=== PATIENT | female | born 1955 | race Caucasian/White ===

== ENCOUNTER → 2016-11-28 | Outpatient (CLI) | payer MEDICAID | LOC: FIMAGING 14:14 | PROVIDERS: ATTEND Neurological Surgery | DX: M43.17 Spondylolisthesis, lumbosacral region (principal); M43.16 Spondylolisthesis, lumbar region; M51.26 Other intervertebral disc displacement, lumbar region ==

== ENCOUNTER 2017-04-01 07:15 | Inpatient (IN) | payer MEDICAID ==
[~2017-04-01 07:15] MED LIST: BACITRACIN 50,000 UNITS/10 ML SYR IRR ONE; BUPIVACAINE/EPI 0.25% 30 ML SDV ONE; THROMBIN (BOVINE) 5,000 UNIT VIAL TP ONE; morphINE PF 5 MG/10 ML INJ IT ONE
[2017-04-01] MEDS ORDERED: ONDANSETRON 4 MG/2 ML VIAL ONE (08:16)
[2017-04-01] MEDS ORDERED: ROCURONIUM 50 MG/5 ML VIAL ONE (08:16)
[2017-04-01] MEDS ORDERED: DEXAMETHASONE 4 MG/ML VIAL ONE (08:16)
[2017-04-01] MEDS ORDERED: LIDOCAINE 2% 5 ML SDV ONE ×2 (08:16→09:11)
[2017-04-01] MEDS ORDERED: PROPOFOL 200 MG/20 ML VIAL ONE (08:17)
[2017-04-01] MEDS ORDERED: fentaNYL 100 MCG/2 ML INJ ONE ×4 (08:17→16:46)
[2017-04-01] MEDS ORDERED: THROMBIN (BOVINE) 5,000 UNIT VIAL TP ONE ×2 (08:47→08:57)
[2017-04-01] MEDS ORDERED: PROPOFOL/EMULSION 500 MG/50 ML BOTTLE IV ONE ×2 (08:58→11:21)
[2017-04-01] MEDS ORDERED: BUPIVACAINE/EPI 0.25% 30 ML SDV ONE (08:58)
[2017-04-01] MEDS ORDERED: MIDAZOLAM 2 MG/2 ML VIAL ONE (09:04)
[2017-04-01] MEDS ORDERED: MIDAZOLAM 2 MG/2 ML VIAL IVP ONE ×2 (09:08→09:11)
[2017-04-01] MEDS ORDERED: VANCOMYCIN HCL/NORMAL SALINE 250 ML IV ONE (09:08)
--- NOTE | 2017-04-01 09:10 | PDANEPAE ---
ANE History of Present Illness back pain ANE Past Medical History - Cardiovascular History Hx Hypertension: Yes Hx Arrhythmias: No Hx Chest Pain: No Hx Coronary Artery / Peripheral Vascular Disease: No Hx CHF / Valvular Disease: No Hx Palpitations: No - Pulmonary History Hx COPD: No Hx Asthma/Reactive Airway Disease: No Hx Recent Upper Respiratory Infection: No Hx Oxygen in Use at Home: No - Neurologic History Hx Cerebrovascular Accident: No Hx Seizures: No Hx Dementia: No - Endocrine History Hx Diabetes: Yes - Renal History Hx Renal Disorders: No - Liver History Hx Hepatic Disorders: No - Neurological & Psychiatric Hx Hx Neurological and Psychiatric Disorders: Yes - Cancer History Hx Cancer: No - Congenital Disorder History Hx Congenital Disorders: No - GI History Hx Gastrointestinal Disorders: No - Chronic Pain History Chronic Pain: Yes (BACK & NECK PAIN) ANE Review of Systems Review of systems is: negative - Exercise capacity METS (RN): 4 METS ANE Patient History - Allergies Allergies/Adverse Reactions: adhesive tape Allergy (Severe, Verified 03/05/17 12:58) Rash bone cement Allergy (Severe, Verified 03/05/17 12:56) Rash latex Allergy (Severe, Verified 03/05/17 12:57) Rash nickel Allergy (Severe, Verified 03/05/17 12:58) Rash lanolin Allergy (Verified 03/05/17 12:58) Rash Penicillins Allergy (Verified 02/26/17 09:57) SWELLING SURGICAL GLUE Allergy (Severe, Uncoded 03/05/17 12:56) Rash - Home Medications Home Medications: Levothyroxine [Synthroid 112 mcg (*)] 112 mcg PO DAILY06 02/26/17 [Last Taken Unknown] Lisinopril/Hctz 20/12.5MG [Zestoretic/Prinzide 20/12.5MG (*)] 1 ea PO DAILY [Last Taken Unknown] Multivitamins [Multivitamin (*)] 1 each PO DAILY 02/26/17 [Last Taken Unknown] Nortriptyline HCl [Pamelor 25 mg (*)] 25 mg PO HS 02/26/17 [Last Taken Unknown] Pregabalin [Lyrica 50mg (*)] 100 mg PO TID 02/26/17 [Last Taken Unknown] metFORMIN HCL [Glucophage 500 mg (*)] 500 mg PO DAILY 02/26/17 [Last Taken Unknown] - Smoking Hx Smoking Status: Former smoker - Family Anes Hx Family Hx Anesthesia Complications: NEG ANE Labs/Vital Signs - Vital Signs Height: 162.56 cm Weight: 85.275 kg ANE Physical Exam - Airway Mallampati Score: Class 2 Mouth exam: normal dental/mouth exam - Pulmonary Pulmonary: no respiratory distress - Cardiovascular Cardiovascular: regular rate and rhythym - ASA Status ASA Status: II ANE Anesthesia Plan Anesthesia Plan: general endotracheal anesthesia
[2017-04-01] MEDS ORDERED: TRANEXAMIC ACID 1,000 MG in NS 100 ML IV ONE ×2 (09:11→11:30)
[2017-04-01] MEDS ORDERED: LIDOCAINE 1% 2 ML INJ ONE (09:12)
[2017-04-01] MEDS ORDERED: LIDOCAINE 1% 2 ML INJ ID PRN (09:22)
[2017-04-01] MEDS ORDERED: LR 1,000 ML IV ONE (09:22)
--- NOTE | 2017-04-01 09:25 | PDHPUP ---
History & Physical Update H&P update statement: This history and physical update is based on an assessment of the patient which was completed after admission or registration (within 24 hours), but prior to the surgery/procedure. H&P update: H&P reviewed & patient examined, no change in patient's condition since H&P completed
[2017-04-01] MEDS ORDERED: ONDANSETRON 4 MG/2 ML VIAL IVP PRN (09:26)
[2017-04-01] MEDS ORDERED: BISACODYL 10 MG SUPP PR PRN (09:26)
[2017-04-01] MEDS ORDERED: ONDANSETRON DISINTEGRATING 4 MG TAB PO PRN (09:26)
[2017-04-01] MEDS ORDERED: POLYETHYLENE GLYCOL 3350 17 GM PKT PO PRN (09:26)
[2017-04-01] MEDS ORDERED: MAGNESIUM HYDROXIDE 30 ML UDCUP PO PRN (09:26)
[2017-04-01] MEDS ORDERED: LACTULOSE 20 GM/30 ML UDCUP PO PRN (09:26)
[2017-04-01] MEDS ORDERED: DIAZEPAM 10 MG/2 ML SYR IVP PRN (09:26)
--- NOTE | 2017-04-01 09:42 | POSTOPPROG ---
Post Op Note Date of Operation: 04/01/17 Surgeon: Jeffrey Cope Master Brewer: Virgen Poe Anesthesia: GET(General Endotracheal) Pre-op Diagnosis: Lumbar Stenosis Post-op Diagnosis: Same Procedure: L3-S1 TLIF, L3-S1 PSF Inf/Abcess present in the surg proc area at time of surgery?: No Depth: Organ Space Drains: Renato Bustamante SOAP Progress Note Assessment/Plan: Assessment: Plan: S: Patent in PACU. Stable with expected back pain. O: NAD, VSS CN II_XII grossly intact PERRL, EOMI No droop HARP X4 BLE 5/5= Sensation intact to lt touch Incision c/d/i-dressed RICK X 1- To full suction A: 62 yo female sp L3-S1 TLIF and L3-S1 PSF for lumbar stenosis and lumbar radiculopathy P: -Admit to med/surg -Advance diet as tolerated -Brace to be fit by Tip Bander- may be up prior to brace arriving -No lifting more than 5-10 pounds, no bending, or twisting -Postop x-rays pending in am -RICK X 1 to full suction -DVT: TEDs, SCDs, Lovenox ok POD #1 24 hours postop -Call with any questions or concerns Virgen Poe PA-C [facility] [phone] 04/01/17 09:39 Objective: Vital Signs Temp Pulse Resp BP Pulse Ox 37 C 70 16 116/80 95 04/01/17 09:34 04/01/17 09:34 04/01/17 09:34 04/01/17 09:34 04/01/17 09:34
[2017-04-01 09:55] LABS: INR 0.94 (0.83-1.16); PROTIME(PATIENT) 12.5 SEC (12.0-15.0)
[2017-04-01 09:56] LABS: APTT 30.8 SEC (23.0-38.0)
[2017-04-01] MEDS ORDERED: GLYCOPYRROLATE 0.2 MG/1 ML VIAL ONE (10:49)
[2017-04-01] MEDS ORDERED: PHENYLEPHRINE HCL 100 MCG/ML SYR ONE (11:11)
[2017-04-01] MEDS ORDERED: PROPOFOL/EMULSION 100 ML IV ONE (11:30)
[2017-04-01] MEDS ORDERED: morphINE PF 5 MG/10 ML INJ ONE (12:03)
[2017-04-01] MEDS ORDERED: HYDROmorphONE/DILAUDID 2 MG/ML INJ ONE (14:19)
[2017-04-01] MEDS ORDERED: ALBUTEROL 3 ML DEYVIAL IH PRN (14:49)
[2017-04-01] MEDS ORDERED: LR 500 ML IV PRN (14:49)
[2017-04-01] MEDS ORDERED: NALOXONE HCL 0.4 MG/ML INJ IVP PRN (14:49)
--- NOTE | 2017-04-01 15:09 | POSTANESTH ---
Post Anesthetic Evaluation Cardiovascular Status: Normal, Stable Respiratory Status: Normal, Stable Level of Consciousness/Mental Status: Can Participate in Eval Pain Control: Adequate, Prn Tx Ordered Nausea/Vomiting Control: Adequate, Prn Tx Ordered Complications Possibly Related to Anesthesia: None Noted
[2017-04-01] MEDS: fentaNYL 100 MCG/2 ML INJ IVP PRN ×4 (15:25→16:48)
[2017-04-01] MEDS: LISINOPRIL/HCTZ 20/12.5MG 1 EA TAB PO SCH (17:34)
[2017-04-01] MEDS: metFORMIN HCL 500 MG TAB PO SCH (17:35)
[2017-04-01] MEDS: PREGABALIN 50 MG CAP PO SCH ×3 (17:40→21:04)
[2017-04-01] MEDS: diphenhydrAMINE 25 MG CAP PO PRN (17:46)
[2017-04-01] MEDS: ACETAMINOPHEN 500 MG TAB PO SCH ×2 (17:46→21:05)
[2017-04-01] MEDS: oxyCODONE IR 5 MG TAB PO PRN (18:14)
[2017-04-01] MEDS ORDERED: NORTRIPTYLINE HCL 25 MG CAP PO SCH (21:00)
[2017-04-01] MEDS: morphINE SR 15 MG TAB PO SCH (21:05)
[2017-04-01] MEDS: SENNOSIDES/DOCUSATE SODIUM TAB PO SCH (21:05)
[2017-04-01] MEDS ORDERED: VANCOMYCIN 1.25 GM in D5W 250 ML IV ONE (22:00)
[2017-04-01] MEDS: NORTRIPTYLINE HCL 10 MG CAP PO SCH (23:15)
[2017-04-02] MEDS: DIAZEPAM 5 MG TAB PO PRN ×3 (00:40→13:46)
[2017-04-02] MEDS: oxyCODONE IR 5 MG TAB PO PRN ×4 (00:40→15:10)
--- NOTE | 2017-04-02 01:08 | GOP ---
[f rep st] OPERATIVE REPORT DATE OF OPERATION: 04/01/2017 SURGEON: Jeffrey Cope MD STEWARD/STEWARDESS TOURIST CLASS: SANTOS Clarke PREOPERATIVE DIAGNOSIS: Severe S1 radiculopathy with spinal listhesis at L4-5 and L5-S1, and severe spondylosis at L3-4. POSTOPERATIVE DIAGNOSIS: Severe S1 radiculopathy with spinal listhesis at L4-5 and L5-S1, and severe spondylosis at L3-4. PROCEDURE PERFORMED: 1. L3 to S1 transforaminal lumbar interbody fusion. 2. Placement of lumbar interbody grafts at L3-4, L4-5, L5-S1. 3. Placement of pedicle screw fixation, posterior instrumentation at L3, L4, L5 , S1. 4. Complete laminectomy at L5 with decompression of bilateral L4-5 foramen and L5-S1 foramen. 5. O-arm CT navigation for screw placement. 6. Winthrop of local autograft. 7. Use of allograft, bone morphogenic protein, and cadaver bone chips. 8. Intraoperative neurophysiological monitoring including somatosensory-evoked potentials and free run EMG. FINDINGS: Successful L3 to S1 fusion. SPECIMENS: There were no specimens. ESTIMATED BLOOD LOSS: 200 cc INDICATIONS: The patient is a 62-year-old woman who presented with severe bilateral S1 radiculopathy. She was found to have a grade 2 spondylolisthesis which is mobile at L5-S1, and a grade 1 spondylolisthesis at L4-5. She had severe foraminal stenosis at L5-S1 and lateral recess stenosis at that level as well. After much discussion, we discussed with her the option of surgical decompression and fusion, and she wished to proceed. DESCRIPTION OF PROCEDURE: Informed consent was obtained from the patient. The patient was brought to the operating room and a formal time-out was performed, identifying the patient by name, medical record number, and date of . Preoperative antibiotics were given. The endotracheal tube was placed. General endotracheal anesthesia was smoothly induced. The patient then turned to the prone position on a Renato table and all appropriate pressure points were padded and checked. A midline incision was marked in the low lumbar region and 30 cc of 0.25% Marcaine with epinephrine was infiltrated in the skin for hemostasis. The lumbar region was then prepped and draped in the normal sterile fashion. A single spinal needle was placed and a lateral x-ray using the O arm was obtained , localizing the correct level. At this point, the O arm was moved cephalad out of the way, and the skin incision made using a 10 blade. The subcutaneous tissues were dissected using monopolar electrocautery and the fascia was opened in the midline. This identified the spinous processes of L3, L4, L5, and S1 and the bottom portion of L2. At this point, the paraspinous muscles were taken down from the spinous processes and mobilized laterally, exposing the facet joints at L2-3, L3-4, L4-5 and L5-S1. Once this exposure was obtained, the stereotactic arc was placed on the S1 spinous process and a stereotactic CT scan was performed from L3 to S1. This was then used to confirm the entry point of the pedicle screws using known anatomic landmarks, and pedicle screws were then placed 1st on the left side at S1 with a 6.5 x 45 mm Medtronic Solaris screw, at L5 a 6.5 x 45 mm, at L4 a 6.5 x 45 mm, and at L3, 6.5 x 50 mm. Each entry point was drilled and then tapped using a 5.5 tap, and each pedicle was sounded prior to the placement of the screw. The same process was repeated on the right side, placing a 6.5 x 40 mm Medtronic Solaris screw at S1 , a 6.5 x 45 mm screw at L5, a 6.5 x 45 mm screw at L4, and a 6.5 x 50 mm screw at L3. At this point, all of the screw heads were stimulated, and none stimulated above threshold. A 2nd stereotactic CT scan was then performed confirming excellent placement of all pedicle screws within the pedicle in the bone. Next, the operative microscope was brought on the field and the remainder of the procedure was performed under high-power magnification. First, on the right side, we began with drilling the pars between L3 and L4, over the disc space. The L4 nerve root was identified and retracted medially, and the facet was completely removed down to the L4 pedicle. The disc space was then identified and was entered, some distraction was placed on the screw heads at L3 and L4, opening the disc space further. Using a combination of curettes and Kerrison punches and pituitary forceps, the disc was completely removed and the endplates were decorticated. A small bit of allograft cadaver bone was then placed into the disk space, and pushed toward the contralateral side. The disc space was sized for a 7 x 28 mm Medtronic Elevate cage which was packed with BMP , allograft and the autograft from the facet joint. This was then placed into the disk space under navigation with the O arm spin. An x-ray was performed, confirming good placement of the cage across the midline and anteriorly. We then moved down to L4-5, again placing distraction on the screw heads and removing the right-sided facet joint, and localizing the disc space. The disc space was again prepped as mentioned above, and was sized for an 8 x 23 mm Medtronic Elevate cage which was again packed with allograft, BMP and some autograft from the facet joint. It was then placed, again, into the disc space under navigation. We then moved to the L5-S1 space and at this level, the spinous process was completely removed and a full L5 laminectomy was performed decompressing both the L4-5 and the L5-S1 foramina on both sides. On the right side, we then retracted the S1 nerve root medially and prepared the disc space as mentioned above. This was sized for an 8 x 23 mm Medtronic Elevate cage, which was packed with allograft, BMP and autograft, and was again placed into the disc space under navigation. Once all the cages were placed, another lateral and AP radiograph was performed, confirming good cage placement. All of our neurophysiologic monitoring remained stable. The screw heads were then sized for bilateral Medtronic 4.5 mm titanium rods, which were placed and we were able to reduce the L4 and L5 vertebral bodies another few millimeters, up to the rods, reducing the spondylolisthesis further. The locking caps were then locked down and finally torqued. On the left side, the lamina and facet joints were decorticated, and this was covered with the remainder of the autograft and the remainder of the allograft BMP. A 1 x 10 cm Magna Fuse allograft was placed over the top of the BMP and the autograft. We did place a titanium Crosslink between the L4 and L5 screws, and all the hardware was tightened down finally. The wound was copiously irrigated using bacitracin irrigation. Again, the neurophysiologic monitoring was completely stable. Then, 0.2 mg of intrathecal Duramorph was injected prior to the final closure. A RICK drain was placed in the subfascial space and the deep lumbar fascia was closed using interrupted 0 Vicryl. The superficial fascia was closed using interrupted 0 Vicryl, and the deep dermis was closed using interrupted 2-0 Vicryl. The skin was closed using Steri-Strips. The patient was then awakened in the operating room, she was turned back into the supine position, where she was extubated and transferred to the PACU in stable condition. There were no operative complications. FLUIDS AND URINE OUTPUT: Per the anesthesia record. COMPLICATIONS: There were no operative complications. All sponge and needle counts were correct at the end of the case. DRAIN: subfascial RICK. /[id number]/MODL MTDD
[2017-04-02] MEDS: LEVOTHYROXINE 112 MCG TAB PO SCH (05:20)
[2017-04-02] MEDS: PREGABALIN 50 MG CAP PO SCH ×3 (05:21→21:58)
[2017-04-02] MEDS: ACETAMINOPHEN 500 MG TAB PO SCH ×3 (05:30→21:59)
--- NOTE | 2017-04-02 06:48 | NEUSURGPN ---
Date of Surgery: 04/01/17 Post Op Day: 1 Assessment/Plan: Assessment: 62 yo female s/p L3-S1 TLIF and L3-S1 PSF for lumbar stenosis and lumbar radiculopathy POD #1 Plan: -s/p L spine fusion surgery: pt with expected lower back pain -Advance diet as tolerated -Brace to be fit by Vice President Of Engineering- may be up prior to brace arriving-pending this am -No lifting more than 5-10 pounds, no bending, or twisting -Postop x-rays pending this am -RICK X 1 to full suction-continue with drain -DVT: TEDs, SCDs, Lovenox ok POD #1 24 hours postop -d/w Dr Cope -pt with some post op itching-?anesthesia or med related. No rash, no fever- will trial atarax -Call with any questions or concerns Subjective: Awake and alert. NAD. Eating/drinking and voiding. No f/c/n/v/d. No mckeon/neck/ chest/abd or gu complaints. Objective: NAD, VSS CN II_XII grossly intact PERRLA, EOMI No droop HARP X4 BLE 5/5= Sensation intact to lt touch Incision c/d/i-dressed RICK X 1- To full suction Neuro Check Frequency: per routine Urinary Catheter in Place: Yes Urinary Catheter Indication: Other (Use Comment) (to be removed this am) Catheter Insertion Date: 04/01/17 - Physician Discussed Patient with Dr.: Cope Neurosurgery Physical Exam - Vitals, I&O, Labs I and O 04/01/17 04/02/17 04/03/17 05:59 05:59 05:59 Intake Total 2410 Output Total 2830 Balance -420 Weight 85.27 kg Intake: Oral (ml) 810 IV Intake (ml) 1600 Output: Urine (ml) 2700 Catheter 2700 RICK Drain Output (ml) 130 Renato Bustamante 130 Vital Signs Temp Pulse Resp BP Pulse Ox 36.9 C 70 16 113/67 94 04/02/17 04:11 04/02/17 04:11 04/02/17 04:11 04/02/17 04:11 04/02/17 04:11 ICD10 Worksheet Patient Problems: Problems Problem Status Onset Arthrodesis status Acute Lumbar radicular pain Acute Lumbar stenosis Acute - ICD10 Problem Qualifiers (1) Lumbar stenosis (2) Lumbar radicular pain (3) Arthrodesis status
[2017-04-02] MEDS: metFORMIN HCL 500 MG TAB PO SCH (07:37)
[2017-04-02] MEDS: SENNOSIDES/DOCUSATE SODIUM TAB PO SCH ×2 (07:37→21:59)
[2017-04-02] MEDS: LISINOPRIL/HCTZ 20/12.5MG 1 EA TAB PO SCH (07:37)
[2017-04-02] MEDS: morphINE SR 15 MG TAB PO SCH ×2 (07:38→21:58)
[2017-04-02] MEDS: ENOXAPARIN 40 MG/0.4 ML SYR SC SCH (15:51)
[2017-04-02] MEDS: METHOCARBAMOL 750 MG TAB PO PRN (15:51)
[2017-04-02] MEDS: hydrOXYzine HCL 25 MG TAB PO PRN (18:22)
[2017-04-02] MEDS: oxyCODONE IR 15 MG TAB PO PRN (19:27)
[2017-04-02] MEDS ORDERED: NS W/ 20 KCl/L 1,000 ML IV SCH (21:00)
[2017-04-02] MEDS ORDERED: NS BOLUS 500 ML (Wide open) IV ONE (21:00)
[2017-04-02] MEDS: NORTRIPTYLINE HCL 10 MG CAP PO SCH (21:58)
[2017-04-03] MEDS: oxyCODONE IR 15 MG TAB PO PRN ×5 (00:11→23:31)
[2017-04-03] MEDS: DIAZEPAM 5 MG TAB PO PRN ×2 (00:12→20:05)
[2017-04-03] MEDS: METHOCARBAMOL 750 MG TAB PO PRN ×2 (04:11→13:20)
[2017-04-03] MEDS: ACETAMINOPHEN 500 MG TAB PO SCH ×2 (05:53→14:33)
[2017-04-03] MEDS: LEVOTHYROXINE 112 MCG TAB PO SCH (05:53)
--- NOTE | 2017-04-03 09:18 | NEUSURGPN ---
Date of Surgery: 04/01/17 Post Op Day: 2 Assessment/Plan: Assessment: 62 yo female s/p L3-S1 TLIF and L3-S1 PSF for lumbar stenosis and lumbar radiculopathy POD #1 Plan: -s/p L spine fusion surgery: pt with expected lower back pain-better today -Advance diet as tolerated -Brace fitted by Clean Out Driller Helper -No lifting more than 5-10 pounds, no bending, or twisting -Postop x-rays look good -RICK X 1 to full suction-ok to remove from both Dr Fox and my opinion-ordered for removal -DVT: TEDs, SCDs, Lovenox ok POD #1 24 hours postop -d/w Dr Cope-images reviewed -pt with some post op itching that is better -warning signs reviewed -Call with any questions or concerns Subjective: Awake and alert. NAD. Eating/drinking and voiding. Back pain better today. More ambulatory Objective: NAD, VSS CN II_XII grossly intact PERRLA, EOMI No droop HARP X4 BLE 5/5= Sensation intact to lt touch Incision c/d/i-dressed RICK X 1- To full suction-to be pulled today Neuro Check Frequency: per routine Urinary Catheter in Place: No Catheter Insertion Date: 04/01/17 - Physician Discussed Patient with Dr.: Cope Neurosurgery Physical Exam - Vitals, I&O, Labs I and O 04/02/17 04/03/17 04/04/17 05:59 05:59 05:59 Intake Total 2410 1200 Output Total 2830 1670 300 Balance -420 -470 -300 Weight 85.27 kg Intake: Oral (ml) 810 1200 IV Intake (ml) 1600 Output: Urine (ml) 2700 1500 300 Bedside Commode 1500 300 Catheter 2700 RICK Drain Output (ml) 130 170 Renato Bustamante 130 170 Other: Number of Voids Bedside Commode 1 Catheter 2 Vital Signs Temp Pulse Resp BP Pulse Ox 36.7 C 85 16 92/54 L 96 04/03/17 08:08 04/03/17 08:08 04/03/17 08:08 04/03/17 08:08 04/03/17 08:08 ICD10 Worksheet Patient Problems: Problems Problem Status Onset Arthrodesis status Acute Lumbar radicular pain Acute Lumbar stenosis Acute - ICD10 Problem Qualifiers (1) Lumbar stenosis (2) Lumbar radicular pain (3) Arthrodesis status
[2017-04-03] MEDS: morphINE SR 15 MG TAB PO SCH ×2 (09:49→20:05)
[2017-04-03] MEDS: PREGABALIN 50 MG CAP PO SCH ×3 (09:50→23:28)
[2017-04-03] MEDS: SENNOSIDES/DOCUSATE SODIUM TAB PO SCH (09:50)
[2017-04-03] MEDS: ENOXAPARIN 40 MG/0.4 ML SYR SC SCH (09:51)
[2017-04-03] MEDS: LISINOPRIL/HCTZ 20/12.5MG 1 EA TAB PO SCH (09:51)
[2017-04-03] MEDS: metFORMIN HCL 500 MG TAB PO SCH (09:51)
[2017-04-03] MEDS ORDERED: SIMETHICONE 80 MG TAB CHEW PO PRN (22:30)
[2017-04-03] MEDS ORDERED: METOCLOPRAMIDE 10 MG TAB PO PRN (23:30)
[2017-04-04] MEDS: SENNOSIDES/DOCUSATE SODIUM TAB PO SCH ×4 (00:49→20:03)
[2017-04-04] MEDS: ACETAMINOPHEN 500 MG TAB PO SCH ×5 (01:33→22:07)
[2017-04-04] MEDS: NORTRIPTYLINE HCL 10 MG CAP PO SCH ×2 (02:45→20:03)
[2017-04-04] MEDS: METHOCARBAMOL 750 MG TAB PO PRN ×2 (03:58→22:07)
[2017-04-04] MEDS: oxyCODONE IR 15 MG TAB PO PRN ×4 (03:58→22:06)
[2017-04-04] MEDS: LEVOTHYROXINE 112 MCG TAB PO SCH (05:29)
--- NOTE | 2017-04-04 08:23 | NEUSURGPN ---
Assessment/Plan: Assessment: 62 yo female s/p L3-S1 TLIF and L3-S1 PSF for lumbar stenosis and lumbar radiculopathy POD #3 Plan: -s/p L spine fusion surgery: pt with expected lower back pain-better today -Brace fitted by Return Checker -No lifting more than 5-10 pounds, no bending, or twisting -Postop x-rays with intact hardware -DVT: TEDs, SCDs, Lovenox -Constipation: had a loose bowel movement last night, Will contine to montior today -warning signs reviewed -Call with any questions or concerns -PT/OT: Patient would like to go home with [facility] if possible, will have her evaluated for this option. -Discussed with Dr. Cope Subjective: Pain improved, still with back stiffness with movement Objective: SAMIA, HARP X4 BLE 5/5= Sensation intact to lt touch Incision c/d/i Catheter Insertion Date: 04/01/17 - Physician Discussed Patient with Dr.: Cope Neurosurgery Physical Exam - Vitals, I&O, Labs I and O 04/03/17 04/04/17 04/05/17 05:59 05:59 05:59 Intake Total 1200 650 Output Total 1670 800 Balance -470 -150 Intake: Oral (ml) 1200 650 Output: Urine (ml) 1500 800 Bedside Commode 1500 450 Toilet 350 RICK Drain Output (ml) 170 Renato Bustamante 170 Other: Intake Quantity Yes Sufficient Number of Voids Bedside Commode 1 Catheter 2 Toilet 1 Vital Signs Temp Pulse Resp BP Pulse Ox 36.8 C 84 18 100/68 95 04/04/17 04:00 04/04/17 04:00 04/04/17 04:00 04/04/17 05:51 04/04/17 04:00 ICD10 Worksheet Patient Problems: Problems Problem Status Onset Arthrodesis status Acute Lumbar radicular pain Acute Lumbar stenosis Acute
[2017-04-04] MEDS: ENOXAPARIN 40 MG/0.4 ML SYR SC SCH (08:47)
[2017-04-04] MEDS: PREGABALIN 50 MG CAP PO SCH ×3 (08:47→22:07)
[2017-04-04] MEDS: LISINOPRIL/HCTZ 20/12.5MG 1 EA TAB PO SCH (08:47)
[2017-04-04] MEDS: metFORMIN HCL 500 MG TAB PO SCH (08:47)
[2017-04-04] MEDS: morphINE SR 15 MG TAB PO SCH ×2 (08:47→20:04)
[2017-04-04] MEDS: hydrOXYzine HCL 25 MG TAB PO PRN (15:02)
[2017-04-04 23:59] VITALS: RESP 16
[2017-04-05] MEDS: DIAZEPAM 5 MG TAB PO PRN ×2 (03:26→13:24)
[2017-04-05] MEDS: oxyCODONE IR 15 MG TAB PO PRN ×3 (03:26→15:07)
[2017-04-05] MEDS: METHOCARBAMOL 750 MG TAB PO PRN ×2 (05:32→18:02)
[2017-04-05] MEDS: ACETAMINOPHEN 500 MG TAB PO SCH ×2 (05:32→15:07)
[2017-04-05] MEDS: LEVOTHYROXINE 112 MCG TAB PO SCH (05:32)
[2017-04-05 07:45] VITALS: TEMP 98.1
[2017-04-05] MEDS: LISINOPRIL/HCTZ 20/12.5MG 1 EA TAB PO SCH ×2 (08:09→08:16)
[2017-04-05] MEDS: SENNOSIDES/DOCUSATE SODIUM TAB PO SCH (08:10)
[2017-04-05] MEDS: ENOXAPARIN 40 MG/0.4 ML SYR SC SCH (08:10)
[2017-04-05] MEDS: PREGABALIN 50 MG CAP PO SCH ×2 (08:12→15:06)
[2017-04-05] MEDS: metFORMIN HCL 500 MG TAB PO SCH (08:15)
--- NOTE | 2017-04-05 08:44 | NEUSURGPN ---
Date of Surgery: 04/01/17 Post Op Day: 4 Assessment/Plan: Assessment: 62 yo female s/p L3-S1 TLIF and L3-S1 PSF for lumbar stenosis and lumbar radiculopathy POD #4 dressing soaked today with pink drainage. Plan: frequent dressing checks, q4h, call if continue to be saturated. Change if saturated. -s/p L spine fusion surgery: pt with expected lower back pain -Brace when OOB -No lifting more than 5-10 pounds, no bending, or twisting -Postop x-rays with intact hardware -DVT: TEDs, SCDs, Lovenox -Call with any questions or concerns -PT/OT: -dispo: likely home w/ [facility] when cleared by therapy teams if wound not draining. -Discussed with Dr. Cope Subjective: c/o left sided back and hip pain, post operative pain. Objective: NAD, HARP X4 BLE 5/5= Sensation intact to lt touch Incision wet and saturated with pink fluid this am, still intact at this point. Urinary Catheter in Place: No Catheter Insertion Date: 04/01/17 - Physician Discussed Patient with : [facility] Physical Exam - Vitals, I&O, Labs I and O 04/04/17 04/05/17 04/06/17 05:59 05:59 05:59 Intake Total 650 500 Output Total 800 Balance -150 500 Intake: Oral (ml) 650 500 Output: Urine (ml) 800 Bedside Commode 450 Toilet 350 Other: Intake Quantity Yes Yes Sufficient Number of Voids Toilet 1 1 1 Number of Stools Toilet 1 Vital Signs Temp Pulse Resp BP Pulse Ox 36.7 C 80 16 110/63 92 04/05/17 07:44 04/05/17 07:44 04/05/17 07:44 04/05/17 08:16 04/05/17 07:44 ICD10 Worksheet Patient Problems: Problems Problem Status Onset Arthrodesis status Acute Lumbar radicular pain Acute Lumbar stenosis Acute
[2017-04-05] MEDS: morphINE SR 15 MG TAB PO SCH (08:50)
[2017-04-05] MEDS: diphenhydrAMINE 25 MG CAP PO PRN (10:20)
--- NOTE | 2017-04-05 15:28 | PDIAF ---
- Diagnosis Code Status: Full Code - Medication Management Discharge Medications: Medications to Continue on Transfer Levothyroxine [Synthroid 112 mcg (*)] 112 mcg PO DAILY06 02/26/17 [Last Taken ] Lisinopril/Hctz 20/12.5MG [Zestoretic/Prinzide 20/12.5MG (*)] 1 ea PO DAILY [Last Taken 03/31/17] Multivitamins [Multivitamin (*)] 1 each PO DAILY 02/26/17 [Last Taken 03/24/17] Nortriptyline HCl [Pamelor 25 mg (*)] 25 mg PO HS 02/26/17 [Last Taken 03/31/17] Pregabalin [Lyrica 50mg (*)] 100 mg PO TID 02/26/17 [Last Taken 03/31/17] metFORMIN HCL [Glucophage 500 mg (*)] 500 mg PO DAILY 02/26/17 [Last Taken 03/28] Acetaminophen [Tylenol ES 500 mg (*)] 1,000 mg PO Q8HRS #0 tab 04/05/17 [Last Taken Unknown] Diazepam [Valium 5 MG (*)] 5 mg PO Q6HRS PRN #0 tab 04/05/17 [Last Taken Unknown ] Sennosides/Docusate Sodium [Senokot-S] 1 - 2 tab PO BID #0 tab 04/05/17 [Last Taken Unknown] diphenhydrAMINE [Benadryl 25 MG (*)] 25 - 50 mg PO Q6HRS PRN #0 cap 04/05/17 [ Last Taken Unknown] hydrOXYzine HCL [hydrOXYzine HCL (RX)] 25 mg PO Q6HRS PRN #0 tab 04/05/17 [Last Taken Unknown] morphINE SR [Ms Contin/Oramorph 15 mg (*)] 15 mg PO BID #0 tab 04/05/17 [Last Taken Unknown] oxyCODONE IR [Oxycodone Ir (*)] 5 - 15 mg PO Q4HRS PRN #0 tab 04/05/17 [Last Taken Unknown] Discharge Medications: Refer to the Discharge Home Medication list for PRN reason. - Orders Services needed: Home Care, Registered Nurse, Physical Therapy, Occupational Therapy Home Care Face to Face: I certify that this patient was under my care and that I had the required [id number] encounter meeting the encounter requirements on the discharge day. My findings support the fact that the patient is homebound as defined in CMS Chapter 7 Medicare Benefits Manual 30.1.1, The condition of the patient is such that there exists a normal inability to leave home and consequently, leaving home would require a considerable and taxing effort. Diet Recommendation: no restrictions on diet - Follow Up Care Current Providers and Referrals: MARTIN ESCOBAR [Other] MARTIN ESCOBAR [Other]
[2017-04-05 17:21] VITALS: BP 97/57; PULSE 92; O2SAT 94
== END 2017-04-05 18:08 | disposition home health service (06) | DRG 460 ==
LOC: F3N 08:07
PROVIDERS: ADMIT Neurological Surgery; ATTEND Neurological Surgery
DX: M43.16 Spondylolisthesis, lumbar region (principal); M43.17 Spondylolisthesis, lumbosacral region; M54.16 Radiculopathy, lumbar region; I10 Essential (primary) hypertension
CPT/HCPCS: 97116-GP; 97161-GP; 97165-GO; 97530-GP; 97535-GO; C1713; C1762; J1100; J1170; J1200; J1650; J2250; J2274; J2370; J2405; J2704; J3010; J3370

== ENCOUNTER 2017-05-23 12:02 | Day surgery (SDC) | payer MEDICAID ==
[2017-05-23] MEDS ORDERED: fentaNYL 100 MCG/2 ML INJ ONE (14:40)
[2017-05-23] MEDS ORDERED: MIDAZOLAM 2 MG/2 ML VIAL ONE (14:41)
[2017-05-23] MEDS ORDERED: LIDOCAINE 1% 300 MG/30 ML SDV ONE (15:51)
[2017-05-23] MEDS ORDERED: TRIAMCINOLONE ACETONIDE 200 MG/5 ML MDV IM ONE (15:51)
[2017-05-23] MEDS ORDERED: IOPAMIDOL (ISOVUE-M 300) 15 ML VIAL ONE (15:52)
== END 2017-05-23 17:00 | disposition home or self-care (01) ==
LOC: FIMAGING 12:02
PROVIDERS: ATTEND Radiology Diagnostic Radiology
DX: M43.18 Spondylolisthesis, sacral and sacrococcygeal region (principal); T84.226A Displacement of internal fixation device of vertebrae, initial encounter; E03.9 Hypothyroidism, unspecified; Z98.1 Arthrodesis status
CPT/HCPCS: J2250; J3010; J3301; Q9967

== ENCOUNTER 2017-07-04 05:41 | Inpatient (IN) | payer MEDICAID ==
[2017-07-02 11:07] LABS: % IMMATURE GRANULYOCYTES 0.3 % (0.0-1.1); ABSOLUTE IMMATURE GRANULOCYTES 0.03 10^3/uL (0.00-0.10); ADD DIFF? NO; ADD MORPH? NO; ADD SCAN? NO; ATYPICAL LYMPHOCYTE FLAG 0 (0-99); FRAGMENT RBC FLAG 0 (0-99); HEMATOCRIT 46.8 % (38.0-47.0); HEMOGLOBIN 15.8 g/dL (12.6-16.3); LEFT SHIFT FLG 0 (0-99); LIPEMIA HEMOLYSIS FLAG 90 (0-99); MEAN CELL HEMOGLOBIN 32.2 pg (27.9-34.1); MEAN CELL HEMOGLOBIN CONCENTR. 33.8 g/dL (32.4-36.7); MEAN CELL VOLUME 95.3 fL (81.5-99.8); MEAN PLATELET VOLUME 9.4 fL (8.7-11.7); PLATELET CLUMPS FLAG 0 (0-99); PLATELET COUNT 295 10^3/uL (150-400); RED BLOOD CELL COUNT 4.91 10^6/uL (4.18-5.33); RED CELL DISTRIBUTION WIDTH 15.5 % (11.5-15.2)
[2017-07-04] MEDS ORDERED: LR 1,000 ML IV ONE (06:07)
[2017-07-04] MEDS ORDERED: LIDOCAINE 1% 2 ML INJ ID PRN (06:07)
[2017-07-04] MEDS ORDERED: CHLORHEXIDINE GLUC HIBICLENS 118 ML BTL TP ONE (06:52)
[2017-07-04] MEDS ORDERED: THROMBIN (BOVINE) 5,000 UNIT VIAL TP ONE (06:52)
[2017-07-04] MEDS ORDERED: BACITRACIN 50,000 UNITS/10 ML SYR IRR ONE (06:53)
[2017-07-04] MEDS ORDERED: BUPIVACAINE 0.5% 30 ML SDV ONE (06:53)
[2017-07-04] MEDS ORDERED: BUPIVACAINE 0.25% 30 ML SDV ONE (06:53)
--- NOTE | 2017-07-04 07:11 | PDANEPAE ---
ANE Past Medical History - Cardiovascular History Hx Hypertension: No Hx Arrhythmias: No Hx Chest Pain: No Hx Coronary Artery / Peripheral Vascular Disease: No Hx CHF / Valvular Disease: No Hx Palpitations: No - Pulmonary History Hx COPD: No Hx Asthma/Reactive Airway Disease: No Hx Recent Upper Respiratory Infection: No Hx Oxygen in Use at Home: No Hx Sleep Apnea: No Sleep Apnea Screening Result - Last Documented: Negative - Neurologic History Hx Cerebrovascular Accident: No Hx Seizures: No Hx Dementia: No - Endocrine History Hx Diabetes: Yes Endocrine History Comment: HYPOTHYROID - Renal History Hx Renal Disorders: No - Liver History Hx Hepatic Disorders: No - Neurological & Psychiatric Hx Hx Neurological and Psychiatric Disorders: Yes Neurological / Psychiatric History Comment: ANXIETY- on nortriptyline. Excrutiating Low back pain radiates down L tailbone/buttock L knee, L calf. Slipped hardware 03-29 fusion - Cancer History Hx Cancer: No Cancer History Comment: CERVICAL DYSPLASIA - Congenital Disorder History Hx Congenital Disorders: No - GI History Hx Gastrointestinal Disorders: No Gastrointestinal History Comment: constipation due to narcotics - Other Health History Other Health History: NEG - Chronic Pain History Chronic Pain: Yes (back, L leg) - Surgical History Prior Surgeries: L3/S1 fusion 04-01-17. TKA L. CERVICAL FUSION 2015 ANE Review of Systems Review of Systems: - Exercise capacity METS (RN): 4 METS ANE Patient History - Allergies Allergies/Adverse Reactions: adhesive tape Allergy (Severe, Verified 06/30/17 11:53) Rash bone cement Allergy (Severe, Verified 06/30/17 11:53) Rash latex Allergy (Severe, Verified 06/30/17 11:53) Rash nickel Allergy (Severe, Verified 06/30/17 11:53) Rash lanolin Allergy (Verified 06/30/17 11:53) Rash Penicillins Allergy (Verified 06/30/17 11:53) SWELLING SURGICAL GLUE Allergy (Severe, Uncoded 03/05/17 12:56) Rash - Home Medications Home Medications: Multivitamins [Multivitamin (*)] 1 each PO DAILY 02/26/17 [Last Taken 06/20/17] Levothyroxine [Synthroid 88 mcg (*)] 88 mcg PO DAILY06 06/27/17 [Last Taken ] Nortriptyline HCl [Pamelor 10 mg (*)] 10 mg PO HS 06/27/17 [Last Taken 07/03/17] Sennosides/Docusate Sodium [Senokot-S] 2 tab PO BID 06/27/17 [Last Taken ] oxyCODONE IR [Oxycodone Ir (*)] 15 mg PO Q6HRS PRN 06/27/17 [Last Taken 07/04/17 ] LYRICA 06/30/17 [Last Taken 07/03/17 21:00] - Smoking Hx Smoking Status: Current some day smoker - Family Anes Hx Family Hx Anesthesia Complications: NEG ANE Labs/Vital Signs - Labs Result Diagrams: 07/02/17 10:54 - Vital Signs Height: 162.56 cm Weight: 81.647 kg ANE Physical Exam - Airway Mallampati Score: Class 2 - ASA Status ASA Status: II ANE Anesthesia Plan Anesthesia Plan: general endotracheal anesthesia Lines/Monitors: additional IV
[2017-07-04] MEDS ORDERED: MIDAZOLAM 2 MG/2 ML VIAL ONE (07:16)
[2017-07-04] MEDS ORDERED: fentaNYL 100 MCG/2 ML INJ ONE ×5 (07:16→14:52)
[2017-07-04] MEDS ORDERED: PROPOFOL 200 MG/20 ML VIAL ONE (07:17)
[2017-07-04] MEDS ORDERED: PROPOFOL/EMULSION 500 MG/50 ML BOTTLE IV ONE ×4 (07:17→13:31)
[2017-07-04] MEDS ORDERED: VANCOMYCIN PHARMACY TO DOSE MISC ONE (07:22)
[2017-07-04] MEDS ORDERED: oxyCODONE IR 15 MG TAB PO PRN (07:23)
[2017-07-04] MEDS ORDERED: VANCOMYCIN 1.25 GM in D5W 250 ML IV ONE (07:30)
[2017-07-04] MEDS ORDERED: CITRATE DEXTROSE SOLN 500 ML BAG ONE (07:49)
[2017-07-04] MEDS ORDERED: fentaNYL 100 MCG/2 ML INJ IT ONE (08:30)
[2017-07-04] MEDS ORDERED: PHENYLEPHRINE HCL 100 MCG/ML SYR ONE (08:38)
[2017-07-04] MEDS ORDERED: ROCURONIUM 50 MG/5 ML VIAL ONE ×2 (08:38)
[2017-07-04] MEDS ORDERED: ONDANSETRON 4 MG/2 ML VIAL ONE ×2 (08:38→14:45)
[2017-07-04] MEDS ORDERED: METOCLOPRAMIDE 10 MG/2 ML VIAL ONE (08:38)
[2017-07-04] MEDS ORDERED: METOPROLOL TARTRATE 5 MG/5 ML INJ ONE (09:27)
[2017-07-04] MEDS ORDERED: morphINE PF 1 MG/2 ML AMP IT ONE (09:30)
[2017-07-04] MEDS ORDERED: BACITRACIN ZINC 14.2 GM OINTTUBE TP ONE (10:40)
[2017-07-04] MEDS ORDERED: SURGIFLO MATRIX KIT WITH THROMBIN TP ONE (12:44)
--- NOTE | 2017-07-04 14:37 | GOP ---
[f rep st] OPERATIVE REPORT DATE OF OPERATION: 07/04/2017 SURGEON: Guillermo Aguirre MD CO-SURGEON: Dr Juan Francisco Barney PARTS SALES MANAGER: Dr. Ezequiel Cope. ANESTHESIA: General. PREOPERATIVE DIAGNOSIS: 1. Hardware malfunction with previous history of fusion L3 through S1. 2. Sacral fracture. 3. Treatment refractory to nonoperative intervention. POSTOPERATIVE DIAGNOSIS: 1. Anterior arthrodesis with approach to L5-S1. 2. Partial corpectomy L5, and partial corpectomy S1. 3. Removal of interbody cage. 4. L5-S1 re-do discectomy and interbody fusion using a 16 x 12 degree perimeter PEEK cage with morselized allograft. 5. Anterior lumbar fusion L5-S1 with a large Medtronic Pivox plate with a 30 mm screw in the L5, and a 30 mm screw in the S1. 6. Use of intraoperative fluoroscopy, less than 1 hour fluoroscopy time. 7. Use of neuromonitoring. PROCEDURE PERFORMED: 1. Anterior arthrodesis with approach to L5-S1. 2. Partial corpectomy L5, and partial corpectomy S1. 3. Removal of interbody cage. 4. L5-S1 re-do discectomy and interbody fusion using a 16 x 12 degree perimeter PEEK cage with morselized allograft. 5. Anterior lumbar fusion L5-S1 with a large Medtronic Pivox plate with a 30 mm screw in the L5, and a 30 mm screw in the S1. 6. Use of intraoperative fluoroscopy, less than 1 hour fluoroscopy time. 7. Use of neuromonitoring. FINDINGS: per imaging ESTIMATED BLOOD LOSS: 100 mL. INDICATIONS: The patient is a 62-year-old woman, who underwent a previous L3- S1 fusion by Dr. Cope several months ago. The patient had progressive pain, and was noted to have a sacral fracture as well as hardware failure of the L5- S1 screw unilaterally. After discussion of risks, benefits, and treatment alternatives, after failing nonoperative interventions, we decided to proceed forth with surgery as described above. This is stage 1 of a planned 2-stage surgical procedure. Stage 2 will be completed immediately thereafter and as a posterior surgery, and will be dictated in a separate operative report. DESCRIPTION OF PROCEDURE: Patient was brought to operating theater and underwent general endotracheal anesthesia without complications. She had Venodynes AYLIN hose, and the appropriate lines placed by Anesthesia. She was maintained supine on the operating room table, and using lateral fluoroscopy, we marked out an incision on the ventral, anterior, and inferior aspect of the abdomen. This area was prepped and draped in usual sterile surgical fashion. A time-out was completed per protocol, and the patient received antibiotics within [address] Barney and his team will then dictate in a separate operative report the anterior abdominal approach to the L5-S1 level. Once this was completed, we were called into the room. We confirmed our level again using lateral fluoroscopy. At this point, we incised the ventral aspect of the L5 and S1 disk space with an 11-blade. We completed a ventral L5-S1 discectomy. We were able to identify the previous hardware in the L5-S1 disk space. However, because it was imbedded in the L5 vertebral body as well as S1, I had to complete a partial corpectomy of L5 and S1 using the bur tip on the drill bit and Kerrison punches. We were then able to pull out the entire interbody cage with the pituitaries. I then re-prepped the endplates and partial corpectomy site of L5 and S1. We measured interbody space, and placed a 16 x 12 degree perimeter PEEK cage filled with morcellized allograft into the L5-S1 space. We then secured a large Medtronic Pivox plate with a 30 mm screw into L5 and a 30 mm screw into S1. AP and lateral x-rays demonstrated excellent placement of the hardware. We also achieved small amount of distraction of the L5-S1 foramina bilaterally by placement of this large interbody cage. This was completion of the anterior interbody fusion. Dr. Barney and his team will then dictate in a separate operative report the anterior abdominal closure. COMPLICATIONS: None. /[id number]/MODL MTDD
[2017-07-04] MEDS ORDERED: ALBUTEROL 3 ML DEYVIAL IH PRN (14:41)
[2017-07-04] MEDS ORDERED: fentaNYL 100 MCG/2 ML INJ IVP PRN (14:41)
[2017-07-04] MEDS ORDERED: LR 500 ML IV PRN (14:41)
[2017-07-04] MEDS ORDERED: NALOXONE HCL 0.4 MG/ML INJ IVP PRN (14:41)
[2017-07-04] MEDS ORDERED: MEPERIDINE 25 MG/ML SYR IVP PRN (14:41)
[2017-07-04] MEDS ORDERED: PROMETHAZINE HCL 25 MG/ML INJ IVP PRN ×2 (14:41→14:50)
[2017-07-04] MEDS ORDERED: ONDANSETRON 4 MG/2 ML VIAL IVP PRN ×2 (14:41→14:50)
[2017-07-04] MEDS ORDERED: HYDROCODONE/APAP 5/325 TAB PO PRN (14:41)
[2017-07-04] MEDS ORDERED: ONDANSETRON DISINTEGRATING 4 MG TAB PO PRN (14:50)
[2017-07-04] MEDS ORDERED: LACTULOSE 20 GM/30 ML UDCUP PO PRN (14:50)
[2017-07-04] MEDS ORDERED: DIAZEPAM 10 MG/2 ML SYR IVP PRN (14:50)
[2017-07-04] MEDS ORDERED: diphenhydrAMINE 25 MG CAP PO PRN (14:50)
[2017-07-04] MEDS ORDERED: BISACODYL 10 MG SUPP PR PRN (14:50)
--- NOTE | 2017-07-04 14:50 | NEUSURGPN ---
Assessment/Plan: S: Patient in PACU. Stable and in expected back pain. O: NAD, VSS CN II-XII grossly intact PERRL, EOMI HARP X 4 BLE 5/5= Sensation intact to lt touch Incision c/d/i- RICK X 2 A: 62 yo female sp L5/S1 ALIF,hardware revision and L3-S2 posterior fusion P: -Admit to Med/Surg -NPO until 07/05 am, then may advance to clear liquid tomorrow -Postop x-rays tomorrow if able -Advance diet as tolerated -RICK X 2 -Wear brace when up and out of bed -Intrathecal narcotics given intraop -Optimize pain management- Intrathecal narcs given 07/04 ~1400 -PT/OT -Case management consult placed for hopeful discharge to inpatient rehab - [place] up discharge -DVT: TEDs, SCDs, Lovenox 24hours postop -Patient seen by Dr. Cope in PACU - Physician Discussed Patient with Dr.: Cope Patient Seen by : Anatoliy Neurosurgery Physical Exam - Vitals, I&O, Labs I and O 07/03/17 07/04/17 07/05/17 05:59 05:59 05:59 Weight 81.647 kg Laboratory Results 07/02/17 10:54 ICD10 Worksheet Patient Problems: Problems Problem Status Onset Arthrodesis status Acute Lumbar radicular pain Acute Lumbar stenosis Acute
[2017-07-04] MEDS ORDERED: NS 1,000 ML IV SCH (15:00)
[2017-07-04] MEDS ORDERED: HYDROmorphONE/DILAUDID 1 MG/ML INJ IVP PRN ×2 (15:01→15:17)
[2017-07-04] MEDS ORDERED: HYDROmorphONE/DILAUDID 1 MG/ML INJ ONE (15:18)
[2017-07-04] MEDS ORDERED: MEPERIDINE 25 MG/ML SYR ONE (15:28)
--- NOTE | 2017-07-04 15:32 | GOP ---
[f rep st] OPERATIVE REPORT DATE OF OPERATION: 07/04/2017 SURGEON: Jeffrey Cope MD SERVICE DESK MANAGER: Virgen So PA-C ANESTHESIA: General endotracheal. PREOPERATIVE DIAGNOSIS: Status post L3 to S1 fusion with hardware failure. POSTOPERATIVE DIAGNOSIS: Status post L3 to S1 fusion with hardware failure. PROCEDURE PERFORMED: 1. Exploration of lumbar fusion. 2. Hardware removal at S1 and the posterior lateral rods. 3. Placement of pedicle screws at S1. 4. Sacral pelvic fixation S2 to the ilium. 5. Posterolateral fusion, L3 to S2. 6. Use of O-arm navigation for screw placement. 7. [place] of local autograft. 8. Use of allograft, BMP, and Progenix Plus demineralized bone matrix. 9. Intraoperative neurophysiological monitoring, including somatosensory- evoked potentials and motor-evoked potentials. FINDINGS: A successful L3 to the ilium fusion. SPECIMENS: None. ESTIMATED BLOOD LOSS: 200 cc. DESCRIPTION OF PROCEDURE: After informed consent was obtained, the patient was brought to the operating room, and after the first stage of the procedure, where the ALIF was performed, she had already been anesthetized and was turned into the prone position on the Renato table. All appropriate pressure points were padded and checked. The lumbar region was then prepped and draped in a normal sterile fashion. Previous incision was marked and was extended slightly caudal. At this point, the skin incision was made using a 10 blade, and the subcutaneous tissues were dissected using monopolar electrocautery. Then the fascia was opened in the midline. Self-retaining retractors were placed. The midline CrossLink was identified, and this was dissected out to the rods. The screw heads at L3 to S1 were identified bilaterally, and the rods were as well. The CrossLink was then removed, and the locking caps on the screw heads were removed, and the fusion rods were removed. The screw on the right at S1 was quite loose and was able to be pulled from the pedicle. The left-sided screw was still intact, and this was backed out carefully. At this point, the O-arm was brought into the field and a stereotactic spin was obtained, including the L4 to S2 vertebral bodies. This was then used to localize the entry points for screws at S2 which would cross the SI joint into the ilium. On the right side, the bone was decorticated and a 5.5-6.5 mm tap was used to tap through the SI joint, using guidance from the O -arm spin. This was then sounded, and an 8.5 x 80 mm Medtronic Solaris screw was placed on the right side. Add at this point, on the left side, the screw hole was sounded to be sure that there was no breach, and an 8.5 x 45 mm Medtronic Solaris screw was placed in the previous trajectory. Next, on the opposite side at S2, again the entry point was identified using the stereotactic spin, and the tap was again used to tap across the SI joint. The hole was sounded, and another 8.5 x 80 mm Medtronic Solaris screw was placed through the SI joint into the ilium. At S1 on the right side, the screw hole and significantly loosened; therefore, a 9.5 x 45 mm Medtronic Solaris screw was placed at that level. A 2nd stereotactic spin was obtained and revealed good placement of all the screws with no breach. Each of the screws was then tested using neurophysiologic monitoring, and each stimulated below threshold. At this point, the wound was copiously irrigated using bacitracin irrigation. We then identified the area of the right-sided foramen between L5 and S1, and the scar tissue was carefully retracted medially. A piece of the remaining inferior facet at L5 had significantly shifted when she pulled out her screws and was significantly compressing the exiting L5 nerve root. Kerrison punches were used to remove this piece the inferior facet, completely decompressing the nerve, which we could see all the way out into the foramen with no further compression. We then followed the dura and decompressed medially and all the way across to the left side nerve root, which was somewhat compressed, as well, from part of the inferior facet of L5. This nerve root was also completely decompressed all the way onto the foramen. Both S1 nerve roots were visualized , and no compression was seen on these nerves. At this point, again, the wound was copiously irrigated using bacitracin irrigation. The 4.75 mm Medtronic titanium rods of 110 mm were then fit into the screw heads, and locking caps were placed. Each of the locking caps was tightened down to its final torque. A CrossLink was placed between the L4 and L5 screws, and this was tightened in place, as well. Then 0.2 mg of intrathecal Duramorph was injected into the intrathecal space for pain control. At this point, the bone over the left side of the lamina of L3 and L4 was decorticated, as well as the lamina of S1 and S2. Some decortication was done over the pedicle of L5, but the lamina had already been removed. We then performed a posterolateral fusion in this area using some allograft bone chips and the locally harvested autograft from the inferior facets of L5, mixed with BMP and Progenix Plus demineralized bone matrix. This was placed out over the decorticated bone to form a fusion from L3 to S2. At this point, the wound was again copiously irrigated using bacitracin irrigation. Two RICK drains were placed in the subfascial space. All bleeding was controlled with bipolar electrocautery. The fascia was then closed in the midline using interrupted 0 Vicryl's. The deep dermis was closed using interrupted 2-0 Vicryl's, and the skin was closed using Dermabond. Final x- rays were obtained showing good position of all hardware. The patient was then turned back into the supine position where she was extubated and transferred to the PACU in stable condition. There were no operative complications. I was scrubbed and present for the entire procedure. BRIEF CLINICAL HISTORY: Faith Womack is a 62-year-old woman who had presented with back pain and bilateral L5 radiculopathy from a grade 2 L5-S1 spondylolisthesis. She was taken for an L3 to S2 TLIF, after which she did well for several days. She then had a fall and had a small fracture of the sacral ala where the cage appeared to be loose. She has had extreme back pain and recurrent radiculopathy since that time, although the imaging looked relatively normal until recently, where it was seen that the rods had pulled out of the S1 screw heads on the left side, and on the right, the screw had loosened; and she had gone to a grade 2-3 slip at L5-S1. She was scheduled for surgery electively today, and we first performed an ALIF at L5-S1 with removal of the cage, which is dictated under separate operative note. Now, we have turned to the revision of the posterior instrumentation. FLUIDS AND URINE OUTPUT: Per the anesthesia record. COMPLICATIONS: No operative complications. DRAINS: Subfascial RICK. /[id number]/MODL MTDD
[2017-07-04] MEDS: HYDROmorphONE/DILAUDID 1 MG/ML INJ IVP PRN ×3 (15:40→16:26)
[2017-07-04] MEDS: DIAZEPAM 5 MG TAB PO PRN ×2 (16:42→22:50)
[2017-07-04] MEDS: oxyCODONE IR 5 MG TAB PO PRN ×2 (17:28→22:50)
[2017-07-04] MEDS: morphINE SR 15 MG TAB PO SCH ×2 (18:13→20:17)
[2017-07-04] MEDS ORDERED: VANCOMYCIN 1.25 GM in D5W 250 ML IV SCH (20:00)
[2017-07-04] MEDS: SENNOSIDES/DOCUSATE SODIUM TAB PO SCH (20:17)
[2017-07-04] MEDS: FAMOTIDINE 20 MG TAB PO SCH (20:17)
[2017-07-04] MEDS: NORTRIPTYLINE HCL 10 MG CAP PO SCH (22:50)
[2017-07-04] MEDS: ACETAMINOPHEN 500 MG TAB PO SCH (22:50)
[2017-07-05] MEDS: oxyCODONE IR 5 MG TAB PO PRN ×6 (04:31→21:21)
[2017-07-05] MEDS: METHOCARBAMOL 750 MG TAB PO PRN ×3 (04:31→15:10)
[2017-07-05] MEDS: LEVOTHYROXINE 88 MCG TAB PO SCH (04:31)
[2017-07-05] MEDS: ACETAMINOPHEN 500 MG TAB PO SCH ×3 (04:32→21:17)
[2017-07-05 05:33] LABS: HEMATOCRIT 33.7 % (38.0-47.0); HEMOGLOBIN 11.4 g/dL (12.6-16.3)
[2017-07-05 05:55] LABS: ANION GAP 5 mEq/L (8-16); CALCIUM 8.1 mg/dL (8.5-10.4); CARBON DIOXIDE 22 mEq/l (22-31); CHLORIDE 106 mEq/L (97-110); CREATININE 0.6 mg/dL (0.6-1.0); GLOMERULAR FILTRATION RATE > 60; GLUCOSE 106 mg/dL (70-100); POTASSIUM 3.9 mEq/L (3.5-5.2); SODIUM 133 mEq/L (134-144)
[2017-07-05] MEDS ORDERED: TIOTROPIUM INHALER 18 MCG/DOSE 5 DOSE/MDI IH PRN (07:02)
--- NOTE | 2017-07-05 07:05 | NEUSURGPN ---
Date of Surgery: 07/04/17 Post Op Day: 1 Assessment/Plan: -may advance to clear liquid diet -Postop x-rays today if able -Advance diet as tolerated -RICK X 2 -Wear brace when up and out of bed -Intrathecal narcotics given intraop -Optimize pain management- Intrathecal narcs given 07/04 ~1400 -PT/OT -Case management consult placed for hopeful discharge to inpatient rehab - [place] up discharge -DVT: TEDs, SCDs, Lovenox 24hours postop -Patient seen by Dr. Cope in PACU Subjective: Patient with expected abdominal and back pain Objective: CN II-XII grossly intact PERRL, EOMI HARP X 4 BLE 5/5= Sensation intact to lt touch Incision c/d/i- RICK x2 patent Neuro Check Frequency: per routine Urinary Catheter in Place: No Catheter Insertion Date: 07/04/17 - Physician Discussed Patient with : Anatoliy Neurosurgery Physical Exam - Vitals, I&O, Labs I and O 07/04/17 07/05/17 07/06/17 05:59 05:59 05:59 Intake Total 4325 Output Total 1540 Balance 2785 Weight 81.647 kg Intake: IV Intake (ml) 2800 IV Infused (ml) 1525 Ns 1,000 ml @ 100 mls/hr 1250 IV CONT WALKER Rx#: [id number] Vancomycin 1.25 gm In D5w 275 250 ml @ 166.667 mls/hr IV ONCALL ONE Rx#: [id number] Output: Urine (ml) 850 Catheter 850 Estimated Blood Loss (ml) 500 RICK Drain Output (ml) 190 #1 Left Posterior Back 50 Renato Bustamante #2 Right Posterior Back 140 Renato Bustamante Other: Intake Quantity No Sufficient Vital Signs Temp Pulse Resp BP Pulse Ox 36.8 C 91 16 109/69 95 07/05/17 04:36 07/05/17 04:36 07/05/17 04:36 07/05/17 04:36 07/05/17 04:36 Laboratory Results 07/05/17 05:25 07/05/17 05:25 ICD10 Worksheet Patient Problems: Problems Problem Status Onset Arthrodesis status Acute Lumbar radicular pain Acute Lumbar stenosis Acute
[2017-07-05] MEDS: SENNOSIDES/DOCUSATE SODIUM TAB PO SCH ×2 (08:05→20:22)
[2017-07-05] MEDS: POLYETHYLENE GLYCOL 3350 17 GM PKT PO PRN (08:05)
[2017-07-05] MEDS: PREGABALIN 100 MG CAP PO SCH ×3 (08:06→21:18)
[2017-07-05] MEDS: FAMOTIDINE 20 MG TAB PO SCH ×2 (08:06→20:22)
[2017-07-05] MEDS: morphINE SR 15 MG TAB PO SCH ×3 (08:06→20:22)
[2017-07-05] MEDS: DIAZEPAM 5 MG TAB PO PRN ×2 (12:23→17:17)
--- NOTE | 2017-07-05 15:33 | SOAPPROG ---
SOAP Progress Note Assessment/Plan: Assessment: POSTOP DAY 1. STATUS POST L5-S1 ANTERIOR SPINE FUSION/REASONABLY COMFORTABLE/ WOUND OKAY/ABDOMEN SOFT WITH BOWEL SOUNDS/ Plan: ADVANCE DIET 07/05/17 15:33 Objective: Vital Signs Temp Pulse Resp BP Pulse Ox 36.8 C 99 18 108/65 94 07/05/17 12:00 07/05/17 12:00 07/05/17 12:00 07/05/17 12:00 07/05/17 12:00 Laboratory Results 07/05/17 05:25 07/05/17 05:25 07/04/17 07/05/17 07/06/17 05:59 05:59 05:59 Intake Total 4325 Output Total 1540 130 Balance 2785 -130 ICD10 Worksheet Patient Problems: Problems Problem Status Onset Arthrodesis status Acute Lumbar radicular pain Acute Lumbar stenosis Acute
[2017-07-05] MEDS: ENOXAPARIN 40 MG/0.4 ML SYR SC SCH (17:11)
[2017-07-05] MEDS: NORTRIPTYLINE HCL 10 MG CAP PO SCH (20:22)
[2017-07-06] MEDS: LEVOTHYROXINE 88 MCG TAB PO SCH (05:19)
[2017-07-06] MEDS: oxyCODONE IR 5 MG TAB PO PRN ×3 (05:19→13:52)
[2017-07-06] MEDS: ACETAMINOPHEN 500 MG TAB PO SCH ×3 (05:19→20:58)
[2017-07-06] MEDS: POLYETHYLENE GLYCOL 3350 17 GM PKT PO PRN (08:58)
[2017-07-06] MEDS: ENOXAPARIN 40 MG/0.4 ML SYR SC SCH (08:58)
[2017-07-06] MEDS: SENNOSIDES/DOCUSATE SODIUM TAB PO SCH ×2 (08:58→20:57)
[2017-07-06] MEDS: morphINE SR 15 MG TAB PO SCH ×2 (08:59→20:58)
[2017-07-06] MEDS: PREGABALIN 100 MG CAP PO SCH ×3 (08:59→20:58)
[2017-07-06] MEDS: METHOCARBAMOL 750 MG TAB PO PRN ×2 (09:00→13:54)
[2017-07-06] MEDS: FAMOTIDINE 20 MG TAB PO SCH ×2 (09:00→20:58)
--- NOTE | 2017-07-06 11:50 | NEUSURGPN ---
Date of Surgery: 07/04/17 Post Op Day: 2 Assessment/Plan: 62 yr L5-S1 ALIF with L3-S2 posterior fusion POD#2 -Postop x-rays stable -Advance diet as tolerated per general surgery, may consider full liquid if -RICK X 2 -Wear brace when up and out of bed -PT/OT -Pain well controlled with current medication regimen -Case management consult placed for hopeful discharge to inpatient rehab - [place] up discharge -DVT: TEDs, SCDs, Lovenox 24hours postop -Patient seen by Dr. Cope as well Subjective: Leg pain gone, happy with pain control Objective: AxO x3 PERRLA EOMI 5/5 BUE 5/5 BLE Incision/dressing CDI RICK x2 patent Neuro Check Frequency: per routine Urinary Catheter in Place: No Catheter Insertion Date: 07/04/17 - Physician Discussed Patient with Dr.: Cope Patient Seen by : Anatoliy Neurosurgery Physical Exam - Vitals, I&O, Labs I and O 07/05/17 07/06/17 07/07/17 05:59 05:59 05:59 Intake Total 4325 350 Output Total 1540 310 210 Balance 2785 40 -210 Weight 81.647 kg Intake: Oral (ml) 350 IV Intake (ml) 2800 IV Infused (ml) 1525 Ns 1,000 ml @ 100 mls/hr 1250 IV CONT WALKER Rx#: [id number] Vancomycin 1.25 gm In D5w 275 250 ml @ 166.667 mls/hr IV ONCALL ONE Rx#: [id number] Output: Urine (ml) 850 Catheter 850 Estimated Blood Loss (ml) 500 RICK Drain Output (ml) 190 310 210 #1 Left Posterior Back 50 130 170 Renato Bustamante #2 Right Posterior Back 140 180 40 Renato Bustamante Other: Intake Quantity No Sufficient Number of Voids Toilet 2 1 Vital Signs Temp Pulse Resp BP Pulse Ox 36.8 C 104 H 16 113/71 93 07/06/17 07:37 07/06/17 11:32 07/06/17 11:32 07/06/17 11:32 07/06/17 11:32 Laboratory Results 07/05/17 05:25 07/05/17 05:25 ICD10 Worksheet Patient Problems: Problems Problem Status Onset Arthrodesis status Acute Lumbar radicular pain Acute Lumbar stenosis Acute
--- NOTE | 2017-07-06 14:32 | SOAPPROG ---
SOAP Progress Note Assessment/Plan: Assessment: POSTOP DAY 1. STATUS POST L5-S1 ANTERIOR SPINE FUSION/REASONABLY COMFORTABLE/ WOUND OKAY/ABDOMEN SOFT WITH BOWEL SOUNDS/ Plan: ADVANCE DIET 07/05/17 15:33 07/06/17 14:31 ABDOMEN IS SOFT/WOUND OKAY/MINIMAL FLATUS/AMBULATING HOPE TO ADVANCE DIET SOON Objective: Vital Signs Temp Pulse Resp BP Pulse Ox 36.8 C 104 H 16 113/71 93 07/06/17 07:37 07/06/17 11:32 07/06/17 11:32 07/06/17 11:32 07/06/17 11:32 Laboratory Results 07/05/17 05:25 07/05/17 05:25 07/05/17 07/06/17 07/07/17 05:59 05:59 05:59 Intake Total 4325 350 Output Total 1540 310 270 Balance 2785 40 -270 ICD10 Worksheet Patient Problems: Problems Problem Status Onset Arthrodesis status Acute Lumbar radicular pain Acute Lumbar stenosis Acute
--- NOTE | 2017-07-06 14:56 | ASMTCMCOM ---
CM Note CM Note Notes: Pt here for surg revision. PT rec HHC today. Pt lives w/sister. MD ordered inpt rehab eval; LVM for [facility] at [facility]. Pt lives at home w/sister. CM w/f up w/[facility] and pt tomorrow to determine dc poc. Date Signed: 07/06/2017 02:55 PM Electronically Signed By:Alva Coelho RN
--- NOTE | 2017-07-06 16:27 | ASMTCMCOM ---
CM Note CM Note Notes: Rec'd call from pt's RN, Shruthi who said she discussed w/pt dc poc. RN does not feel pt will have good support at home where she lives w/her sister. Ideally Inpt Rehab would be best but pt is also open to SNF per RN and is aware of 30 day stay w/[facility]. CM willl need to meet w/pt tomorrow to discuss and f/u w/ Inpt rehab after they have evaluated. Date Signed: 07/06/2017 04:26 PM Electronically Signed By:Avla Coelho, RN
[2017-07-06] MEDS: DIAZEPAM 5 MG TAB PO PRN (20:57)
[2017-07-06] MEDS: NORTRIPTYLINE HCL 10 MG CAP PO SCH (20:58)
[2017-07-07] MEDS: LEVOTHYROXINE 88 MCG TAB PO SCH (05:49)
[2017-07-07] MEDS: METHOCARBAMOL 750 MG TAB PO PRN ×3 (05:49→14:13)
[2017-07-07] MEDS: ACETAMINOPHEN 500 MG TAB PO SCH ×3 (05:49→21:06)
[2017-07-07] MEDS: oxyCODONE IR 5 MG TAB PO PRN ×3 (05:50→14:12)
--- NOTE | 2017-07-07 07:28 | NEUSURGPN ---
Assessment/Plan: 62 yr L5-S1 ALIF with L3-S2 posterior fusion POD#3 -Postop x-rays stable -Advance diet as tolerated per general surgery, passing good gas over night per patient -Continue RICK this am, february d/c later today -Wear LSO when up and out of bed -PT/OT -Pain well controlled with current medication regimen -Case management consult placed for hopeful discharge to inpatient rehab - [place], if patient qualifies -DVT: TEDs, SCDs, Lovenox -Please notify NS with any change in neuro/motor exam Subjective: passing gas, pain unde3r good control with current regiment Objective: NAD A&Ox3 MAEx4 5/5 and equal in BUE and BLE. Incision c/d/i. RICK drain serosanguineous Catheter Insertion Date: 07/04/17 - Physician Discussed Patient with : Anatoliy Neurosurgery Physical Exam - Vitals, I&O, Labs I and O 07/06/17 07/07/17 07/08/17 05:59 05:59 05:59 Intake Total 350 Output Total 310 385 Balance 40 -385 Intake: Oral (ml) 350 Output: RICK Drain Output (ml) 310 385 #1 Left Posterior Back 130 325 Renato Bustamante #2 Right Posterior Back 180 60 Renato Bustamante Other: Intake Quantity Yes Sufficient Number of Voids Toilet 2 2 Vital Signs Temp Pulse Resp BP Pulse Ox 36.7 C 91 16 96/61 L 97 07/06/17 23:35 07/06/17 23:35 07/06/17 23:35 07/06/17 23:35 07/06/17 23:35 Laboratory Results 07/05/17 05:25 07/05/17 05:25 ICD10 Worksheet Patient Problems: Problems Problem Status Onset Arthrodesis status Acute Lumbar radicular pain Acute Lumbar stenosis Acute
[2017-07-07] MEDS: PREGABALIN 100 MG CAP PO SCH ×3 (08:23→21:08)
[2017-07-07] MEDS: morphINE SR 15 MG TAB PO SCH ×2 (08:23→21:07)
[2017-07-07] MEDS: SENNOSIDES/DOCUSATE SODIUM TAB PO SCH ×2 (08:26→21:07)
[2017-07-07] MEDS: FAMOTIDINE 20 MG TAB PO SCH ×2 (08:26→21:07)
[2017-07-07] MEDS: ENOXAPARIN 40 MG/0.4 ML SYR SC SCH (08:26)
[2017-07-07] MEDS: POLYETHYLENE GLYCOL 3350 17 GM PKT PO PRN (08:26)
--- NOTE | 2017-07-07 09:21 | SOAPPROG ---
SOAP Progress Note Assessment/Plan: Assessment/Plan: 62 Y F s/p anterior spine exposure for neurosurgical intervention. POD#3. Advance diet. May leave abdominal incision open to air. Ok to shower in terms of our abdominal incision--defer to NS due to back incision and drains. S: passing lots of gas. feeling really good. very eager to eat. very thankful to surgery teams and nurses. O: alert, nad, sitting up at bedside, feet on floor. wearing brace. smiling. conversive. no wob abd soft, +BS, inc cdi with vane, no erythema. 07/07/17 09:18 Objective: Vital Signs Temp Pulse Resp BP Pulse Ox 36.3 C 99 16 106/76 96 07/07/17 07:47 07/07/17 07:47 07/07/17 07:47 07/07/17 07:47 07/07/17 07:47 Laboratory Results 07/05/17 05:25 07/05/17 05:25 07/06/17 07/07/17 07/08/17 05:59 05:59 05:59 Intake Total 350 Output Total 310 385 Balance 40 -385 ICD10 Worksheet Patient Problems: Problems Problem Status Onset Arthrodesis status Acute Lumbar radicular pain Acute Lumbar stenosis Acute
--- NOTE | 2017-07-07 17:07 | ASMTCMCOM ---
CM Note CM Note Notes: [facility] inpatient rehab will assess pt. Pt interested in SNF if she does not qualify for ipr. Pt understands she would need to stay at SNF 30 days. [employer] alerted for LTC val. [employer]TC 100 completed and faxed to [facility]. Pt prefers SNF in [place]. Referrals sent to [facility], [facility], [facility] Pt was in a [place] SNF in starting 04/11/17 for two weeks, unknown how that SNF placement was paid for, pt says she received a very large bill. [facility] has no [facility] beds. CM to follow. Date Signed: 07/07/2017 05:07 PM Electronically Signed By:ANNETTE Higuera
[2017-07-07] MEDS: NORTRIPTYLINE HCL 10 MG CAP PO SCH (21:06)
[2017-07-07] MEDS: DIAZEPAM 5 MG TAB PO PRN (21:07)
[2017-07-08] MEDS: oxyCODONE IR 5 MG TAB PO PRN ×5 (04:09→21:31)
[2017-07-08] MEDS: LEVOTHYROXINE 88 MCG TAB PO SCH (05:54)
[2017-07-08] MEDS: ACETAMINOPHEN 500 MG TAB PO SCH ×3 (05:54→21:31)
--- NOTE | 2017-07-08 08:16 | NEUSURGPN ---
Assessment/Plan: 62 yr L5-S1 ALIF with L3-S2 posterior fusion POD#4 -Postop x-rays stable -Advance diet as tolerated per general surgery, passing good gas over night per patient -DC RICK drains -Wear LSO when up and out of bed -PT/OT -Pain well controlled with current medication regimen -Case management consult placed for hopeful discharge to inpatient rehab - [place], if patient qualifies. to be evaluated today -DVT: TEDs, SCDs, Lovenox -Please notify NS with any change in neuro/motor exam -D/w Dr Cope Subjective: Pt resting in bed, c/o left buttock pain today. Passing gas but no BM yet. Ate solid foods yesterday. Objective: AAOx3 NAD VSS MAEx4 Motor 5/5 BLE posterior lumbar incision dressed cdi JPx2 with serous>bloody fluid in line/bulb +LT Urinary Catheter in Place: No Catheter Insertion Date: 07/04/17 - Physician Discussed Patient with : Anatoliy Neurosurgery Physical Exam - Vitals, I&O, Labs I and O 07/07/17 07/08/17 07/09/17 05:59 05:59 05:59 Output Total 385 110 Balance -385 -110 Output: RICK Drain Output (ml) 385 110 #1 Left Posterior Back 325 50 Renato Bustamante #2 Right Posterior Back 60 60 Renato Bustamante Other: Intake Quantity Yes Yes Sufficient Number of Voids Toilet 2 2 Vital Signs Temp Pulse Resp BP Pulse Ox 36.5 C 81 18 127/72 H 100 07/08/17 07:38 07/08/17 07:38 07/08/17 07:38 07/08/17 07:38 07/08/17 07:38 Laboratory Results 07/05/17 05:25 07/05/17 05:25 ICD10 Worksheet Patient Problems: Problems Problem Status Onset Arthrodesis status Acute Lumbar radicular pain Acute Lumbar stenosis Acute
[2017-07-08] MEDS: SENNOSIDES/DOCUSATE SODIUM TAB PO SCH ×2 (08:49→20:32)
[2017-07-08] MEDS: morphINE SR 15 MG TAB PO SCH ×2 (08:50→20:33)
[2017-07-08] MEDS: METHOCARBAMOL 750 MG TAB PO PRN (08:50)
[2017-07-08] MEDS: PREGABALIN 100 MG CAP PO SCH ×3 (08:50→21:35)
[2017-07-08] MEDS: FAMOTIDINE 20 MG TAB PO SCH ×2 (08:51→20:33)
[2017-07-08] MEDS: ENOXAPARIN 40 MG/0.4 ML SYR SC SCH (08:51)
[2017-07-08] MEDS: MAGNESIUM HYDROXIDE 30 ML UDCUP PO PRN (08:59)
--- NOTE | 2017-07-08 11:16 | SOAPPROG ---
SOAP Progress Note Assessment/Plan: Assessment/Plan: 62 Y F s/p anterior spine exposure for neurosurgical intervention. POD#4. Doing well with regular diet. Discussed eventual staple removal in the office. Added info to d/c plan. Continue bowel regimen. S: passing gas. no bm. might be d/c'ed today if SNF found she says. O: alert, nad, sitting up at bedside, feet on floor. wearing brace. smiling. conversive. no wob abd soft, +BS, inc cdi with vane, no erythema. 07/08/17 11:14 Objective: Vital Signs Temp Pulse Resp BP Pulse Ox 36.5 C 81 18 127/72 H 100 07/08/17 07:38 07/08/17 07:38 07/08/17 07:38 07/08/17 07:38 07/08/17 07:38 Laboratory Results 07/05/17 05:25 07/05/17 05:25 07/07/17 07/08/17 07/09/17 05:59 05:59 05:59 Output Total 385 110 Balance -385 -110 ICD10 Worksheet Patient Problems: Problems Problem Status Onset Arthrodesis status Acute Lumbar radicular pain Acute Lumbar stenosis Acute
[2017-07-08] MEDS ORDERED: FLU VACC QS 2017-18 (3YR+)/PF 0.5 ML SYR (FLUARIX QUAD) IM ONE (11:34)
--- NOTE | 2017-07-08 12:01 | ASMTCMCOM ---
CM Note CM Note Notes: Pt does not qualify for [facility] inpatient rehab. [facility] still needs to assess, they should complete on-site by close of business tomorrow. Spoke w pt and sister Jose, pt is interested in having [facility] eval because she does want to go to SNF. Pt has progressed well enough that PT will d/c. Informed pt if she does not meet criteria for [facility] she can have HHC (pt has had [facility] in the past). Sister would be supportive of pt returning home. This CM supported pt and sister in addressing some feelings about the last time pt went home after spinal surgery and pt currently anxieties. Pt interested in shipping support clerk support, this CM made referral to shipping support clerk. CM to follow. Date Signed: 07/08/2017 12:01 PM Electronically Signed By:ANNETTE Higuera
[2017-07-08] MEDS: NORTRIPTYLINE HCL 10 MG CAP PO SCH (20:33)
[2017-07-08] MEDS: DIAZEPAM 5 MG TAB PO PRN (21:31)
[2017-07-09] MEDS: oxyCODONE IR 5 MG TAB PO PRN ×4 (02:45→16:30)
[2017-07-09] MEDS: METHOCARBAMOL 750 MG TAB PO PRN ×2 (02:45→17:14)
[2017-07-09] MEDS: LEVOTHYROXINE 88 MCG TAB PO SCH (06:17)
[2017-07-09] MEDS: ACETAMINOPHEN 500 MG TAB PO SCH ×3 (06:17→21:03)
--- NOTE | 2017-07-09 07:47 | NEUSURGPN ---
Assessment/Plan: 62 yr L5-S1 ALIF with L3-S2 posterior fusion POD#5 -Postop x-rays stable with good hardware placemen t -Neuro- Stable with some return of right leg pain. -Swelling in ankles and calf pain- will order US BLE to rule out DVT -Advance diet as tolerated per general surgery, passing good gas over night per patient -Wear LSO when up and out of bed -PT/OT -Pain well controlled with current medication regimen -Case management consult - did not qualify for [place], Pending further evaluation today for other facilities vs SNF -DVT: TEDs, SCDs, Lovenox -Please notify NS with any change in neuro/motor exam -D/w Dr Cope Subjective: Pt doing well, sitting at edge of bed. Has some right leg pain today that started around 6pm last night and some swelling in ankle accompanied with some calf pain. Denies sob, cp. Objective: AAOx3 NAD VSS MAEx4 Motor 5/5 BLE posterior lumbar incision dressed cdi Anterior incision c/d/i-stapled +LT Catheter Insertion Date: 07/04/17 - Physician Discussed Patient with : Anatoliy Patient Seen by : Anatoliy Neurosurgery Physical Exam - Vitals, I&O, Labs I and O 07/08/17 07/09/17 07/10/17 05:59 05:59 05:59 Intake Total 830 Output Total 110 Balance -110 830 Intake: Oral (ml) 830 Output: RICK Drain Output (ml) 110 #1 Left Posterior Back 50 Renato Bustamante #2 Right Posterior Back 60 Renato Bustamante Other: Intake Quantity Yes Yes Sufficient Number of Voids Toilet 2 2 Vital Signs Temp Pulse Resp BP Pulse Ox 36.4 C 95 18 113/74 97 07/09/17 07:33 07/09/17 07:33 07/09/17 07:33 07/09/17 07:33 07/09/17 07:33 Laboratory Results 07/05/17 05:25 07/05/17 05:25 ICD10 Worksheet Patient Problems: Problems Problem Status Onset Arthrodesis status Acute Lumbar radicular pain Acute Lumbar stenosis Acute
[2017-07-09] MEDS: morphINE SR 15 MG TAB PO SCH ×2 (09:32→21:03)
[2017-07-09] MEDS: SENNOSIDES/DOCUSATE SODIUM TAB PO SCH ×2 (09:32→21:03)
[2017-07-09] MEDS: PREGABALIN 100 MG CAP PO SCH ×3 (09:32→21:03)
[2017-07-09] MEDS: FAMOTIDINE 20 MG TAB PO SCH ×2 (09:32→21:03)
[2017-07-09] MEDS: ENOXAPARIN 40 MG/0.4 ML SYR SC SCH (09:33)
--- NOTE | 2017-07-09 10:06 | SOAPPROG ---
SOAP Progress Note Assessment/Plan: Assessment/Plan: 62 Y F s/p anterior spine exposure for neurosurgical intervention. POD#5. No major changes overnight. Abd wound clean. Eating well. Awaiting SNF placement. Will sign off for now but happy to help if problems/concerns. Info added to d/c plan. Thanks. 07/09/17 10:05 Objective: Vital Signs Temp Pulse Resp BP Pulse Ox 36.4 C 95 18 113/74 97 07/09/17 07:33 07/09/17 07:33 07/09/17 07:33 07/09/17 07:33 07/09/17 07:33 Laboratory Results 07/05/17 05:25 07/05/17 05:25 07/08/17 07/09/17 07/10/17 05:59 05:59 05:59 Intake Total 830 Output Total 110 Balance -110 830 ICD10 Worksheet Patient Problems: Problems Problem Status Onset Arthrodesis status Acute Lumbar radicular pain Acute Lumbar stenosis Acute
--- NOTE | 2017-07-09 16:16 | ASMTCMCOM ---
CM Note CM Note Notes: Rafaela meneses AC[facility] approves pt, level II PASRR not triggered pt can d/c to SNF once placement is obtained. [facility] unable to accept. [facility] still assessing. CM to follow. Date Signed: 07/09/2017 04:15 PM Electronically Signed By:ANNETTE Higuera
[2017-07-09] MEDS: NORTRIPTYLINE HCL 10 MG CAP PO SCH (21:03)
[2017-07-10] MEDS: ACETAMINOPHEN 500 MG TAB PO SCH ×3 (05:02→21:29)
[2017-07-10] MEDS: LEVOTHYROXINE 88 MCG TAB PO SCH (05:03)
[2017-07-10] MEDS: oxyCODONE IR 5 MG TAB PO PRN ×3 (05:04→16:46)
[2017-07-10] MEDS: DIAZEPAM 5 MG TAB PO PRN ×3 (05:06→22:45)
[2017-07-10] MEDS: PREGABALIN 100 MG CAP PO SCH ×3 (08:14→21:29)
[2017-07-10] MEDS: morphINE SR 15 MG TAB PO SCH ×2 (08:14→21:28)
[2017-07-10] MEDS: FAMOTIDINE 20 MG TAB PO SCH ×2 (08:14→21:28)
[2017-07-10] MEDS: ENOXAPARIN 40 MG/0.4 ML SYR SC SCH (08:15)
[2017-07-10] MEDS: SENNOSIDES/DOCUSATE SODIUM TAB PO SCH ×2 (08:15→21:29)
[2017-07-10] MEDS: METHOCARBAMOL 750 MG TAB PO PRN ×2 (08:24→14:39)
--- NOTE | 2017-07-10 08:32 | NEUSURGPN ---
Assessment/Plan: 62 yr L5-S1 ALIF with L3-S2 posterior fusion POD#6 -Postop x-rays stable with good hardware placement -Neuro- Stable with some return of right leg pain. -Swelling in ankles and calf pain- will order US BLE to rule out DVT -Advance diet as tolerated per general surgery, passing good gas over night per patient -Wear LSO when up and out of bed -PT/OT -Pain well controlled with current medication regimen -Case management consult - did not qualify for [place], discharge to SNF once bed available -DVT: TEDs, SCDs, Lovenox -Please notify NS with any change in neuro/motor exam -D/w Dr Cope Subjective: Denies any leg pain, denies any weakness. Objective: NAD A&Ox3 MAEx4 5/ and equal in BUE and BLE. Incision c/d/i Catheter Insertion Date: 07/04/17 - Physician Patient Seen by Dr.: Cope Neurosurgery Physical Exam - Vitals, I&O, Labs I and O 07/09/17 07/10/17 07/11/17 05:59 05:59 05:59 Intake Total 830 680 Balance 830 680 Intake: Oral (ml) 830 680 Other: Intake Quantity Yes Yes Yes Sufficient Number of Voids Toilet 2 3 Number of Stools Toilet 1 Vital Signs Temp Pulse Resp BP Pulse Ox 36.6 C 82 16 118/83 H 98 07/10/17 07:47 07/10/17 07:47 07/10/17 07:47 07/10/17 07:47 07/10/17 07:47 Laboratory Results 07/05/17 05:25 07/05/17 05:25 ICD10 Worksheet Patient Problems: Problems Problem Status Onset Arthrodesis status Acute Lumbar radicular pain Acute Lumbar stenosis Acute
[2017-07-10] MEDS: MAGNESIUM HYDROXIDE 30 ML UDCUP PO PRN (14:38)
--- NOTE | 2017-07-10 15:25 | ASMTCMCOM ---
CM Note CM Note Notes: Pt accepted at [facility] and [facility], pt chooses [facility] who can accept tomorrow. Pt provided the [place] Medicaid disability val [facility] needs her to fill out. Sandra ISBELL updated and will send PASRR and ULTC to [facility] for d/c tomorrow. Date Signed: 07/10/2017 03:25 PM Electronically Signed By:ANNETTE Higuera
[2017-07-10] MEDS: NORTRIPTYLINE HCL 10 MG CAP PO SCH (21:28)
[2017-07-11] MEDS: ACETAMINOPHEN 500 MG TAB PO SCH ×2 (05:03→13:45)
[2017-07-11] MEDS: LEVOTHYROXINE 88 MCG TAB PO SCH (05:03)
[2017-07-11] MEDS: oxyCODONE IR 5 MG TAB PO PRN ×2 (05:10→12:53)
[2017-07-11 07:52] VITALS: BP 116/80; PULSE 89; RESP 16; TEMP 98.4; O2SAT 90
[2017-07-11] MEDS: SENNOSIDES/DOCUSATE SODIUM TAB PO SCH (08:54)
[2017-07-11] MEDS: morphINE SR 15 MG TAB PO SCH (08:54)
[2017-07-11] MEDS: ENOXAPARIN 40 MG/0.4 ML SYR SC SCH (08:55)
[2017-07-11] MEDS: FAMOTIDINE 20 MG TAB PO SCH (08:55)
[2017-07-11] MEDS: PREGABALIN 100 MG CAP PO SCH (08:55)
--- NOTE | 2017-07-11 09:14 | NEUSURGPN ---
Assessment/Plan: 62 yr L5-S1 ALIF with L3-S2 posterior fusion POD#7 -Postop x-rays stable with good hardware placement -Neuro- Stable with some return of right leg pain. -Swelling in ankles and calf pain- improved today -Wear LSO when up and out of bed -PT/OT -Pain well controlled with current medication regimen -Case management consult - did not qualify for [place], discharge to SNF once bed available -DVT: TEDs, SCDs, Lovenox -Please notify NS with any change in neuro/motor exam -D/w Dr Cope Subjective: left sided siatica pain still limiting activities. Denies any new weakness Objective: NAD A&Ox3 MAEx4 5/ and equal in BUE and BLE. Incision c/d/i Catheter Insertion Date: 07/04/17 - Physician Discussed Patient with : Anatoliy Neurosurgery Physical Exam - Vitals, I&O, Labs I and O 07/10/17 07/11/17 07/12/17 05:59 05:59 05:59 Intake Total 680 880 Balance 680 880 Intake: Oral (ml) 680 880 Other: Intake Quantity Yes Yes Sufficient Number of Voids Toilet 3 3 Number of Stools Toilet 1 Vital Signs Temp Pulse Resp BP Pulse Ox 36.9 C 89 16 116/80 90 L 07/11/17 07:51 07/11/17 07:51 07/11/17 07:51 07/11/17 07:51 07/11/17 07:51 Laboratory Results 07/05/17 05:25 07/05/17 05:25 ICD10 Worksheet Patient Problems: Problems Problem Status Onset Arthrodesis status Acute Lumbar radicular pain Acute Lumbar stenosis Acute
[2017-07-11] MEDS: METHOCARBAMOL 750 MG TAB PO PRN (13:44)
--- NOTE | 2017-07-11 13:48 | PDIAF ---
- Diagnosis Code Status: Full Code - Medication Management Discharge Medications: Medications to Continue on Transfer Levothyroxine [Synthroid 88 mcg (*)] 88 mcg PO DAILY06 06/27/17 [Last Taken ] Nortriptyline HCl [Pamelor 10 mg (*)] 10 mg PO HS 06/27/17 [Last Taken 07/03/17] Pregabalin [LYRICA] 100 mg PO TID 06/30/17 [Last Taken 07/03/17 21:00] Tiotropium Inhaler [Spiriva Handihaler] 18 mcg IH DAILY PRN 07/04/17 [Last Taken Unknown] Acetaminophen [Tylenol ES 500 mg (*)] 1,000 mg PO Q8HRS tab 07/11/17 [Last Taken Unknown] Diazepam [Valium 5 MG (*)] 5 mg PO Q6HRS PRN tab 07/11/17 [Last Taken Unknown] Sennosides/Docusate Sodium [Senokot-S] 1 - 2 tab PO BID tab 07/11/17 [Last Taken Unknown] morphINE SR [Ms Contin/Oramorph 15 mg (*)] 30 mg PO BID tab 07/11/17 [Last Taken Unknown] oxyCODONE IR [Oxycodone Ir (*)] 10 - 20 mg PO Q4HRS PRN tab 07/11/17 [Last Taken Unknown] Discharge Medications: Refer to the Discharge Home Medication list for PRN reason. - Orders Services needed: Registered Nurse, Physical Therapy, Occupational Therapy Diet Recommendation: no restrictions on diet - Follow Up Care Current Providers and Referrals: Jeffrey Cope MD [Medical Doctor] - Doctor Not,On StaffMD [Primary Care Provider] - Bill Barney MD [Medical Doctor] - follow up in 10 days (we should see you in the office about 2 weeks from your surgical date. please call for an appt.)
--- NOTE | 2017-07-11 15:29 | ASDISCHSUM ---
Discharge Information Plan Status:SNF Medically Cleared to Leave: Discharge Date:07/11/2017 02:32 PM CM D/C Disposition:Care Home Facility ADT D/C Disposition:Care Home Facility Projected Discharge Date:07/09/2017 11:00 AM Transportation at D/C:Wheelchair Van Discharge Delay Reason: Follow-Up Date:07/09/2017 11:00 AM Discharge Slot: Final Diagnosis: Placement Information Referral Type:*Senior Living/SNF Referral ID:[id number] Provider Name:[facility] Address 1:[address] Address 2: City:[place] Selection Factors: State:[place] Patient Contact Information Contact Name:DIANNE Relationship:Sister Address:[address] Work Phone: [facility]:[place] Alternate Phone: [facility]/Zip Code:[place] [address] Email: Financial Information Financial Class: Primary Plan Desc:MED[place] [place] Primary Plan Number:[id number] Secondary Plan Desc: Secondary Plan Number: Assessment Information [facility] CM Progress Note CM Note CM Note Notes: Pt here for surg revision. PT rec HHC today. Pt lives w/sister. ordered inpt rehab eval; LVM for [facility] at [facility]. Pt lives at home w/sister. CM w/f up w/IPR and pt tomorrow to determine dc poc. Date Signed: 07/06/2017 02:55 PM Electronically Signed By:Alva Coelho RN [facility] CM Progress Note CM Note CM Note Notes: Rec'd call from pt's RN, Shruthi who said she discussed w/pt dc poc. RN does not feel pt will have good support at home where she lives w/her sister. Ideally Inpt Rehab would be best but pt is also open to SNF per RN and is aware of 30 day stay w/[facility]. CM willl need to meet w/pt tomorrow to discuss and f/u w/ Inpt rehab after they have evaluated. Date Signed: 07/06/2017 04:26 PM Electronically Signed By:Alva Coelho RN [facility] CM Progress Note CM Note CM Note Notes: [facility] inpatient rehab will assess pt. Pt interested in SNF if she does not qualify for ipr. Pt understands she would need to stay at SNF 30 days. [employer] alerted for LTC val. [employer] [address] completed and faxed to [facility]. Pt prefers SNF in [place]. Referrals sent to [place], [facility], [facility]. Pt was in a [place] SNF in starting 04/11/17 for two weeks, unknown how that SNF placement was paid for, pt says she received a very large bill. [facility] has no [facility] beds. CM to follow. Date Signed: 07/07/2017 05:07 PM Electronically Signed By:ANNETTE Higuera [facility] CM Progress Note CM Note CM Note Notes: Pt does not qualify for [facility] inpatient rehab. [facility] still needs to assess, they should complete on-site by close of business tomorrow. Rajat w pt and sister Jose, pt is interested in having [facility] eval because she does want to go to SNF. Pt has progressed well enough that PT will d/c. Informed pt if she does not meet criteria for [facility] she can have HHC (pt has had [facility] in the past). Sister would be supportive of pt returning home. This CM supported pt and sister in addressing some feelings about the last time pt went home after spinal surgery and pt currently anxieties. Pt interested in property and supply officer support, this CM made referral to property and supply officer. CM to follow. Date Signed: 07/08/2017 12:01 PM Electronically Signed By:ANNETTE Higuera [facility] CM Progress Note CM Note CM Note Notes: Rafaela ISBELL approves pt, level II PASRR not triggered pt can d/c to SNF once placement is obtained. [facility], [facility] and [facility] unable to accept. [facility] still assessing. CM to follow. Date Signed: 07/09/2017 04:15 PM Electronically Signed By:ANNETTE Higuera [facility] CM Progress Note CM Note CM Note Notes: Pt accepted at [facility], pt chooses [facility] who can accept tomorrow. Pt provided the [place] Medicaid disability val [facility] needs her to fill out. Sandra ISBELL updated and will send PASRR and ULTC to [facility] for d/c tomorrow. Date Signed: 07/10/2017 03:25 PM Electronically Signed By:ANNETTE Higuera [facility] CM Progress Note CM Note CM Note Notes: Pt medically stable for d/c to [facility]. Pt was pre-medicated and hard scripts for narcs sent w pt. RN called report. Orders sent. Transport 07/11/17 1430 w Adam Juarez. Date Signed: 07/11/2017 03:27 PM Electronically Signed By:ANNETTE Higuera Intervention Information
--- NOTE | 2017-07-16 05:43 | GOP ---
[f rep st] OPERATIVE REPORT DATE OF OPERATION: 07/04/2017 SURGEON: Bill Barney MD PREOPERATIVE DIAGNOSIS: Spinal instability. POSTOPERATIVE DIAGNOSIS: Spinal instability. PROCEDURE PERFORMED: Anterior L5-S1 spine exposure. FINDINGS: The patient was found to have a significant step-off at the L5-S1 level but adequate expos ure. DESCRIPTION OF PROCEDURE: The patient was taken to the operating room where she received satisfactor y general endotracheal anesthesia by Dr. Jonas. She was placed in supine position. Prepped and abhijit ped in the usual sterile fashion. A low Pfannenstiel type incision was made in the abdomen and disse ction was carried down through the subcutaneous tissue, and the rectus sheath was incised. The rectu s fascia was elevated up off the rectus muscle above and below the incision and then the wound was op ened in the midline. The small bowel was packed away and the retroperitoneum was opened over the sac ral prominence between the iliac vessels and the L5-S1 joint space and the L5 body were dissected ozzie e and exposed. Position was confirmed with fluoroscopy. The iliac vessels were elevated up and retr acted away using the omni retractor and the adequate exposure of the L5-S1 joint space was achieved. At that point, the procedure was turned over to Dr. Aguirre and Dr. Cope, who proceeded to perform a n anterior fusion. After that was completed, the wound was irrigated, returned to ny, and the retrop eritoneum was closed with a running 0 Vicryl suture. All packs were removed and the peritoneum was t hen closed with a running 0 Vicryl suture. The rectus muscles were approximated with interrupted 0 V icryl sutures, and the fascia was closed with a running #1 PDS suture. Subcu was closed with 2-0 Lito ryl and skin vane for the skin. All layers were infiltrated with 0.25% Marcaine. She tolerated t he procedure well. She was taken to the recovery room in good condition. There were no complication s. Copy requested to: Dr. Rupali Madrigal /[id number]/MODL
== END 2017-07-11 14:32 | DRG 454 ==
LOC: F3N 05:41
PROVIDERS: ADMIT Neurological Surgery; ATTEND Neurological Surgery
PROC: 8E0WXBF Computer Assisted Procedure of Trunk Region, With Fluoroscopy (ICD-10-PCS; principal; 2017-07-04 07:15)
PROC: 0SG30A0 Fusion of Lumbosacral Joint with Interbody Fusion Device, Anterior Approach, Anterior Column, Open Approach (ICD-10-PCS; principal; 2017-07-04 07:15)
PROC: 01NB0ZZ Release Lumbar Nerve, Open Approach (ICD-10-PCS; principal; 2017-07-04 07:15)
PROC: 0SG1071 Fusion of 2 or more Lumbar Vertebral Joints with Autologous Tissue Substitute, Posterior Approach, Posterior Column, Open Approach (ICD-10-PCS; principal; 2017-07-04 07:15)
PROC: 0SP30AZ Removal of Interbody Fusion Device from Lumbosacral Joint, Open Approach (ICD-10-PCS; principal; 2017-07-04 07:15)
PROC: 4A1004G Monitoring of Central Nervous Electrical Activity, Intraoperative, Open Approach (ICD-10-PCS; principal; 2017-07-04 07:15)
PROC: 0SG Lower Joints, Fusion (ICD-10-PCS; principal; 2017-07-04 07:15)
PROC: 0SP00AZ Removal of Interbody Fusion Device from Lumbar Vertebral Joint, Open Approach (ICD-10-PCS; principal; 2017-07-04 07:15)
PROC: 0SG3071 Fusion of Lumbosacral Joint with Autologous Tissue Substitute, Posterior Approach, Posterior Column, Open Approach (ICD-10-PCS; principal; 2017-07-04 07:15)
DX: T84.296A Other mechanical complication of internal fixation device of vertebrae, initial encounter (principal); S32.10XA Unspecified fracture of sacrum, initial encounter for closed fracture; M43.16 Spondylolisthesis, lumbar region; E03.9 Hypothyroidism, unspecified; W19.XXXA Unspecified fall, initial encounter; Z72.0 Tobacco use; Z23 Encounter for immunization
CPT/HCPCS: 97116-GP; 97162-GP; 97166-GO; 97530-GO; 97530-GP; 97535-GO; C1713; C1762; G0008; J0171; J1170; J1200; J1650; J2250; J2370; J2405; J2704; J2765; J3010; J3370; J7060

== ENCOUNTER → 2017-08-01 | Outpatient (CLI) | payer MEDICAID | LOC: FIMAGING 10:20 | PROVIDERS: ATTEND Neurological Surgery | DX: Z98.1 Arthrodesis status (principal); M51.27 Other intervertebral disc displacement, lumbosacral region ==

== ENCOUNTER → 2017-10-25 | Outpatient (CLI) | payer MEDICAID | LOC: FIMAGING 13:52 | PROVIDERS: ATTEND Physician Assistant | DX: Z98.1 Arthrodesis status (principal) ==

== ENCOUNTER → 2018-03-02 | Outpatient (CLI) | payer MEDICAID | LOC: FIMAGING 13:44 | PROVIDERS: ATTEND Neurological Surgery | DX: Z98.1 Arthrodesis status (principal) ==

== ENCOUNTER → 2018-03-24 | Outpatient (CLI) | payer MEDICAID | LOC: FIMAGING 08:54 | PROVIDERS: ATTEND Physician Assistant | PROC: 3E0S3KZ Introduction of Other Diagnostic Substance into Epidural Space, Percutaneous Approach (ICD-10-PCS; principal; 2018-03-24) | DX: M54.12 Radiculopathy, cervical region (principal); M54.16 Radiculopathy, lumbar region; M43.16 Spondylolisthesis, lumbar region; M48.02 Spinal stenosis, cervical region; M48.03 Spinal stenosis, cervicothoracic region; Z98.1 Arthrodesis status ==

== ENCOUNTER 2018-05-03 22:07 | Emergency (ER) | payer MEDICAID ==
--- NOTE | 2018-05-03 23:34 | EDPHY ---
H & P Time Seen by Provider: 05/03/18 22:13 HPI/ROS: CHIEF COMPLAINT: Left forearm laceration HISTORY OF PRESENT ILLNESS: Patient is 63-year-old female here with complaint of laceration to the flexor aspect of left mid forearm. She states she was using a steak knife to try to cut brown he is out of baking pain and and slipped and cut herself in the form. She is not certain if the blade with through or skipped and hit her multiple times but she reports 2 lacerations to the forearm. She denies any numbness, weakness, loss of range of motion, pain with range of motion of her fingers. She takes no blood thinners. REVIEW OF SYSTEMS: Constitutional: No fever, no chills. Eyes: No discharge. ENT: No sore throat. Cardiovascular: No chest pain, no palpitations. Respiratory: No cough, no shortness of breath. Gastrointestinal: No abdominal pain, no vomiting. Genitourinary: No hematuria. Musculoskeletal: No back pain. Skin: No rashes. Neurological: No headache. Smoking Status: Current some day smoker Physical Exam: General Appearance: Alert and no distress. Eyes: Pupils equal and round no injection. Respiratory: Chest is nontender, lungs are clear to auscultation. Cardiac: regular rate and rhythm. Gastrointestinal: Abdomen is soft and nontender, no masses, bowel sounds normal. Musculoskeletal: Neck is supple and nontender. Extremities have full range of motion and are nontender. Skin: No rashes. 2 lacerations to the left forearm. One is approximately 1.5 cm in length does not involve the knee joint or tendon. The 2nd is approximately 0.5 cm in length. No joint or tendon involvement. She is neurovascular intact distal to the lacerations. Constitutional: Initial Vital Signs Temperature (C) 36.4 C 05/03/18 22:09 Heart Rate 94 05/03/18 22:09 Respiratory Rate 16 05/03/18 22:09 Blood Pressure 131/82 H 05/03/18 22:09 O2 Sat (%) 94 05/03/18 22:09 O2 Delivery Mode Room Air Allergies/Adverse Reactions: adhesive tape Allergy (Severe, Verified 06/30/17 11:53) Rash bone cement Allergy (Severe, Verified 06/30/17 11:53) Rash latex Allergy (Severe, Verified 06/30/17 11:53) Rash nickel Allergy (Severe, Verified 06/30/17 11:53) Rash lanolin Allergy (Verified 06/30/17 11:53) Rash Penicillins Allergy (Verified 06/30/17 11:53) SWELLING SURGICAL GLUE Allergy (Severe, Uncoded 03/05/17 12:56) Rash Home Medications: Medication Instructions Recorded Levothyroxine [Synthroid 88 mcg 88 mcg PO DAILY06 06/27/17 (*)] Nortriptyline HCl [Pamelor 10 mg 10 mg PO HS 06/27/17 (*)] Pregabalin [LYRICA] 100 mg PO TID 06/30/17 Tiotropium Inhaler [Spiriva 18 mcg IH DAILY PRN 07/04/17 Handihaler] Acetaminophen [Tylenol ES 500 mg 1,000 mg PO Q8HRS tab 07/11/17 (*)] Diazepam [Valium 5 MG (*)] 5 mg PO Q6HRS PRN tab 07/11/17 Sennosides/Docusate Sodium 1 - 2 tab PO BID tab 07/11/17 [Senokot-S] morphINE SR [Ms Contin/Oramorph 15 30 mg PO BID tab 07/11/17 mg (*)] oxyCODONE IR [Oxycodone Ir (*)] 10 - 20 mg PO Q4HRS PRN tab 07/11/17 Medical Decision Making - Diagnostics Imaging Results: Imaging Impressions Forearm X-Ray 05/03/18 22:23 Impression: 1. No radiopaque foreign body seen in the soft tissues. 2. No underlying osseous abnormality. Procedures: Procedure: Laceration repair. Verbal consent was obtained from the patient. The left forearm laceration on the was anesthetized in the usual fashion. The wound was irrigated, draped and explored to its base with a gloved finger. There were no deep structures involved. No tendon injury was identified. The wound was repaired with 4 0 nylon. The wound repair was done in sterile fashion and the wound was well approximated. She tolerated the procedure well. The procedure was performed by myself. ED Course/Re-evaluation: Laceration. Detailed above. Total of 3 horizontal mattress sutures were placed. She is neurovascular intact with full range of motion of fingers with no pain at time of discharge. Differential Diagnosis: Foreign body, tendon injury, vascular injury Departure - Departure Disposition: Home, Routine, Self-Care Clinical Impression: Forearm laceration Condition: Good Instructions: Laceration (ED) Additional Instructions: Follow-up in 7 days for suture removal. Follow up sooner for any numbness, loss of range of motion, fever, swelling, uncontrolled pain. Referrals: NONE *PRIMARY CARE P,. [Primary Care Provider] - As per Instructions
[2018-05-03 23:50] VITALS: BP 110/70
== END 2018-05-03 23:48 | disposition home or self-care (01) ==
PROC: 0HQEXZZ Repair Left Lower Arm Skin, External Approach (ICD-10-PCS; principal; 2018-05-03)
DX: S51.812A Laceration without foreign body of left forearm, initial encounter (principal); F17.200 Nicotine dependence, unspecified, uncomplicated; Z91.040 Latex allergy status; W26.0XXA Contact with knife, initial encounter; Y99.8 Other external cause status; Y93.89 Activity, other specified

== ENCOUNTER → 2018-06-27 | Outpatient (CLI) | payer MEDICAID | LOC: FIMAGING 13:17 | PROVIDERS: ATTEND Physician Assistant | DX: M54.5 Low back pain (principal); Z98.1 Arthrodesis status ==

== ENCOUNTER → 2018-11-27 | Outpatient (CLI) | payer MEDICAID ==
[~2018-11-27] MED LIST changes: -BACITRACIN 50,000 UNITS/10 ML SYR IRR ONE; -BUPIVACAINE/EPI 0.25% 30 ML SDV ONE; +IOPAMIDOL (ISOVUE-M 300) 15 ML VIAL ONE; +LIDOCAINE 1% 300 MG/30 ML SDV ONE; -THROMBIN (BOVINE) 5,000 UNIT VIAL TP ONE; -morphINE PF 5 MG/10 ML INJ IT ONE
[2018-11-27 09:25] LABS: INR 0.92 (0.83-1.16); PROTIME(PATIENT) 12.6 SEC (12.0-15.0)
== END ==
LOC: FIMAGING 08:36
PROVIDERS: ATTEND Physician Assistant
PROC: B02BZZZ Computerized Tomography (CT Scan) of Spinal Cord (ICD-10-PCS; principal; 2018-11-27)
DX: Z98.1 Arthrodesis status (principal); M43.12 Spondylolisthesis, cervical region; M47.892 Other spondylosis, cervical region
CPT/HCPCS: Q9967

== ENCOUNTER 2019-01-16 11:41 | Emergency (ER) | payer MEDICAID ==
--- NOTE | 2019-01-16 12:49 | EDPHY ---
General Time Seen by Provider: 01/16/19 12:49 Narrative: CLINICAL IMPRESSION: Left-sided rib contusion, acute on chronic right knee pain with effusion ASSESSMENT/PLAN: Patient is a 63-year-old female with a significant history of osteoporosis, hypothyroidism, hypertension, degenerative disc disease, severe spinal stenosis and chronic right knee pain secondary to osteoarthritis who presents to the emergency department complaining of left lower rib pain and right knee pain with swelling after a fall she sustained 5 days prior. Patient is afebrile, she is mildly uncomfortable appearing however not toxic-appearing. Physical examination reveals clear and equal breath sounds, she has tenderness to palpation on the very inferior left anterior ribcage with mild tenderness to palpation in her left upper quadrant. Chest x-ray revealed no acute cardiopulmonary abnormality. Secondary to mechanism and left upper quadrant pain proceeded with CT of the abdomen which did include the lower ribcage. There were no findings to suggest acute rib fracture or intra-abdominal traumatic injury. While patient was changing into a gown, her left knee gave out causing her to fall onto her right knee while staff was present. A right knee x-ray was subsequently performed and revealed tricompartmental osteoarthritis with joint effusion. Her physical examination did not change after her fall. Overall the patient's examination today is very reassuring, history of physical exam is consistent with left-sided rib contusion and acute on chronic right knee pain with effusion. There were no findings to suggest rib fracture, pneumothorax, hemothorax, intra abdominal traumatic injury, solid organ injury, viscus injury, knee fracture, knee dislocation, compartment syndrome or neurovascular compromise. A lidocaine patch was placed, and Deangelo wrap was applied to her knee. She declined any need for pain medication in the emergency department. On repeat examination the patient is comfortable appearing, she denies any other concerns or complaints. Her abdomen was soft without evidence of a surgical abdomen. I discussed the importance of smoking cessation. Case management did visit with the patient and arranged follow-up with both her PCP as well as coordination of care for her father. Conservative return precautions were discussed-she will return for development of shortness of breath, chest pain, worsening or uncontrolled pain, abdominal pain or for any other concerning symptom. Patient verbalizes understanding and she is in agreement with this plan. DIFFERENTIAL DX: Differential diagnosis including but not limited to and in no particular order rib fracture, pneumothorax, intra abdominal traumatic injury, knee dislocation, knee fracture, effusion, compartment syndrome, neurovascular compromise ED COURSE: 1300: Discussed case with Dr. Mkcinnon, will proceed with CT 1313: With assistance, fell to the ground landing on right knee. Patient did not hit her head, there was no loss of consciousness. She complains of left sided lower rib pain and right knee pain. She was able to stand up with assistance and was assisted to her bed. Patient was found to have a minor abrasion to left pointer finger. She denies any other injury or complaint. She denies any need for pain medication. 1401: Discussed case with Dr. Reeves, no acute finding specifically no evidence of lower rib fracture on the left side, no splenic injury 1440: On repeat examination the patient is uncomfortable appearing, she is still declining any need for pain medication. During conversation her oxygen saturation dropped to 89%, she does report that her oxygenation does tend to drop when she is speaking. At rest her oxygen saturation is 93% on room air. Her CT was performed after her fall. 1502: Dr. Mckinnon in evaluating patient CHIEF COMPLAINT: Left lower rib pain HPI: Patient is a 63-year-old female with a significant history of osteoporosis, hypothyroidism, hypertension, degenerative disc disease, severe spinal stenosis and chronic right knee pain secondary to osteoarthritis who presents to the emergency department complaining of left lower rib pain and right knee pain with swelling after a fall she sustained 5 days prior. Patient lives at home independently, she is currently taking care of her father who has increasing needs. They just recently placed a new wheelchair ramp into their home, she was walking off the ramp when she accidentally tripped causing her to fall directly onto the edge of the ramp hitting her left rib in landing on her right knee. Patient was seen and evaluated by her chronic pain specialist on Friday, an arthrocentesis was performed secondary to a right knee joint effusion. Patient currently has plans for revision spinal surgery for her underlying spinal stenosis with Dr. Camarillo this upcoming March. She has been told that she needs a right total knee replacement however has delayed this secondary to needing to care for her father. She is currently under a pain contract and takes OxyContin, Lyrica and MS Contin. Patient was concerned that she might have a rib fracture as she continues to have pain on her left lower rib area. She reports that her right knee pain is at its baseline, does report some mild increased swelling since the arthrocentesis on Friday. She denies any fever, chest pain, shortness of breath or abdominal pain. Appetite has been normal. She denies any new or unchanged neck or back pain. Patient denies saddle paresthesias, lower extremity numbness, tingling, major motor weakness, urinary retention or bowel/bladder incontinence. She denies any long bone injury. PMH: Osteoporosis, hypothyroidism, hypertension, degenerative disc disease, spinal stenosis, severe arthritic right knee with intermittent effusion, chronic pain management Pertinent Past Surgical History: Multiple back surgeries Family History: Not contributory Social History: Current smoker, denies illicit drug use REVIEW OF SYSTEMS: All other systems negative Constitutional: No fever, no chills, appetite change. Eyes: No discharge, vision change ENT: No sore throat, congestion, ear pain. Cardiovascular: No chest pain, no palpitations. Respiratory: No cough, no shortness of breath. Gastrointestinal: No abdominal pain, no vomiting, diarrhea. Genitourinary: No hematuria, dysuria, flank pain, pelvic pain Musculoskeletal: Left-sided rib pain, chronic generalized back pain, acute on chronic right knee pain. Skin: No rashes, color change. Neurological: No headache, dizziness, weakness. PHYSICAL EXAM: General Appearance: Alert, mildly uncomfortable however not toxic-appearing.. HENT: Normocephalic, atraumatic. Bilateral external ears are normal. Bilateral tympanic membranes are normal with pearly mcdaniel reflex. Nares are clear, mucosa is pink. Oropharynx is clear, uvula is midline. There is no tonsillar enlargement or exudate. The dentition is normal. Eyes: PERRLA, EOMI. Conjunctiva pink, no pallor or injection Neck: Supple, nontender, no lymphadenopathy, no midline pain, FROM. Respiratory: There are no retractions, lungs are clear to auscultation. Patient has tenderness to palpation left inferior costal region. She has no left upper chest wall pain or upper rib pain. No ecchymosis, bony deformity or abrasions. Cardiac: Regular rate and rhythm, no murmurs or gallops. Gastrointestinal: Abdomen is soft, bowel sounds normal, no masses/hernia. She has mild tenderness to deep palpation in the left upper quadrant. no rigidity, guarding or focal peritoneal findings. No CVA tenderness bilaterally. Neurological: Alert and oriented x 3, CN 2-12 grossly intact, normal gait no ataxia, DTR's intact, normal sensation and strength Skin: Warm, dry, no rashes, no nodules on palpation. Upper Extremities: Intact distal pulses, Full range of motion intact, no tenderness, no ecchymosis or edema Lower Extremities: Left lower extremity is unremarkable. Intact distal pulses , No edema, No tenderness, No cyanosis, full range of motion intact, No calf tenderness bilaterally. Right thigh compartment is soft. Right knee has generalized edema and generalized tenderness to palpation. There are no open wounds. There is no anterior posterior laxity. Psychiatric: Patient is oriented X 3, there is no agitation. MEDICAL DECISION MAKING: Patient was seen independently. Secondary supervising physician at time of evaluation was Dr. Mckinnon, he also evaluated this patient. Diagnosis: Rib contusion, acute on chronic right knee pain with effusion. New, requires workup Summary: See Assessment and Plan for summary of ED visit Clinical lab tests: ordered / reviewed. Independent visualization of images, tracing, or specimens: Yes. Decision to obtain medical records or history from someone other than the patient: No Review / Summarize previous medical records: Yes Discussed patient with another provider: Yes, Dr. Mckinnon and case management Patient Progress: Stable, discharged. - History Smoking Status: Heavy smoker - Objective Vital Signs: Initial Vital Signs Temperature (C) 36.8 C 01/16/19 11:44 Heart Rate 74 01/16/19 11:44 Respiratory Rate 18 01/16/19 11:44 Blood Pressure 146/93 H 01/16/19 11:44 O2 Sat (%) 98 01/16/19 11:44 O2 Delivery Mode Room Air Allergies/Adverse Reactions: adhesive tape Allergy (Severe, Verified 01/16/19 11:47) Rash bone cement Allergy (Severe, Verified 01/16/19 11:47) Rash latex Allergy (Severe, Verified 01/16/19 11:47) Rash nickel Allergy (Severe, Verified 01/16/19 11:47) Rash lanolin Allergy (Verified 01/16/19 11:47) Rash Penicillins Allergy (Verified 01/16/19 11:47) SWELLING SURGICAL GLUE Allergy (Severe, Uncoded 01/16/19 11:47) Rash Home Medications: Medication Instructions Recorded Levothyroxine [Synthroid 88 mcg 88 mcg PO DAILY06 06/27/17 (*)] Nortriptyline HCl [Pamelor 10 mg 10 mg PO HS 06/27/17 (*)] Pregabalin [LYRICA] 100 mg PO TID 06/30/17 Tiotropium Inhaler [Spiriva 18 mcg IH DAILY PRN 07/04/17 Handihaler] Acetaminophen [Tylenol ES 500 mg 1,000 mg PO Q8HRS tab 07/11/17 (*)] Diazepam [Valium 5 MG (*)] 5 mg PO Q6HRS PRN tab 07/11/17 Sennosides/Docusate Sodium 1 - 2 tab PO BID tab 07/11/17 [Senokot-S] morphINE SR [Ms Contin/Oramorph 15 30 mg PO BID tab 07/11/17 mg (*)] oxyCODONE IR [Oxycodone Ir (*)] 10 - 20 mg PO Q4HRS PRN tab 07/11/17 Medications Given: Discontinued Medications Miscellaneous Information (Patch Removal) 1 ea TD DAILY21 WALKER Stop: 07/15/19 20:59 Last Admin: 01/16/19 14:19 Dose: Not Given Miscellaneous Medication (Icy Hot Lidocaine/Menthol 4%/1% Patch) 1 patch TD EDNOW ONE Stop: 01/16/19 14:03 Last Admin: 01/16/19 14:19 Dose: 1 patch Point of Care Test Results: Chemistry 01/16/19 13:27 POC Sodium 141 mEq/L mEq/L (135-145) POC Potassium 3.7 mEq/L mEq/L (3.3-5.0) POC Chloride 104 mEq/L mEq/L (97-110) POC Total CO2 24 mEq/L mEq/L (22-31) POC BUN 16 mg/dL mg/dL (7-23) POC Creatinine 0.6 mg/dL mg/dL (0.6-1.0) POC Glucose 87 mg/dL mg/dL (70-100) ISTAT H&H 01/16/19 13:27 POC Hgb 18.4 gm/dL H gm/dL (12.6-16.3) POC Hct 54 % H % (38-47) Departure - Departure Disposition: Home, Routine, Self-Care Clinical Impression: Rib contusion, Knee pain, chronic Condition: Good Instructions: Osteoarthritis (ED), Contusion in Adults (ED), Swollen Knee Joint (ED) Additional Instructions: DISCHARGE INSTRUCTIONS FROM YOUR DOCTOR Thank you for visiting our emergency department today. Please keep in mind that discharge from the emergency department does not mean that there is nothing wrong - it simply means that we have not identified an emergency condition that requires further evaluation or treatment in the hospital. You should always plan to follow up with primary care for re-evaluation of your condition in the next 2-3 days. Avoid tobacco and smoking. Avoid heavy lifting, pushing, pulling, carrying. Take deep breaths intentionally, several times per hour. As we discussed, guarding from the pain associated with a rib fracture or bruise, increases your risk for pneumonia or lung collapse. Apply ice on and off to the chest wall to decrease pain and swelling for the first 24-48 hours. Then apply ice or moist heat, whichever feels better. For pain control: You may take Tylenol, I recommend 500-1000 mg every 6-8 hours as needed. Take with food and a full glass of water. Stop taking if this is upsetting her stomach. Do not exceed 3000 mg in a 24 hr period. You may also take ibuprofen, recommend 400 mg every 6 hr. Take with food and a full glass of water. Stop taking if this upsets her stomach. Do not exceed 2400 mg in a 24 hr period. Please continue wearing compression on your right knee, this will help with her swelling. Elevate as much as possible and be sure that you are icing. Make sure to continue using her walker for assistance. Continue your regular pain regimen according to your pain contract. Salonpas pain patch, continue to use if you feel this helps you. You may purchase this over the counter at your local grocery store or pharmacy. Schedule a follow-up visit with a primary care physician in the next 2-3 days for re-evaluation. Bring a copy of your test results with you to that appointment. (See our list if you don't have one). Return for increased or unmanageable pain, coughing up blood or discolored sputum, shortness of breath, pain in the center of your chest, rapid or irregular heart beat, unusual sweating, wheezing, chest pain, bloody urine, abdominal pain, vomiting, development of fever, chills, neck pain, neck stiffness, back pain, numbness, tingling, weakness of your arms or legs, change in or loss of bowel or bladder control, or for any other new, worsening or worrisome symptoms. People present with illnesses and injuries in different ways, and it is always possible that we have missed something. You may always return for re-evaluation if symptoms worsen or if they are not improving or if you develop new/different symptoms. Again, thank you for choosing our emergency department. We hope that you feel better. Referrals: JOELLE CABEZAS [Other] - 2-3 days without fail
[2019-01-16] MEDS ORDERED: IOPAMIDOL (ISOVUE-300) 100 ML BTL ONE (13:36)
[2019-01-16] MEDS ORDERED: LIDOCAINE 4%/MENTHOL 1% PATCH TD ONE (14:02)
[2019-01-16 15:19] VITALS: BP 114/99
--- NOTE | 2019-01-16 16:43 | ASMTCMCOM ---
CM Note CM Note Notes: Pt presented to the ED through triage for increased pain to her left side after she had a fall 5 days ago onto a wheelchair ramp edge at her home. Pt then was in the ED and had another fall onto the ground due to her right knee "giving out", per pt. CM requested to speak to pt re:her possible need for extra help and support at home, respite for stepfather, etc. CM spoke to pt at bedside. Pt is the primary caregiver for her stepfather, Luis Angel Melton, who has had 3+ falls at home in the last few weeks, requiring him to transition to using an electric wheelchair at all times. Pt and Luis Angel live up [address]. Pt states they are hoping to have a wheelchair stair lift installed soon but in the meantime Luis Angel is sleeping in the living room. Pt states Luis Angel has a history of refusing any additional support or help in the home ( skilled or non-skilled home care, etc.). Overall, pt is tearful and states she is "just tired" and "worn out." Pt is presenting with caregiver burnout. Pt has multiple medical health issues herself (including needing a right knee replacement, history of 3 spinal surgeries and a rotator cuff tear in her left shoulder,etc.). Pt states she has been told that her cervical spinal surgery is "failing" and she needs to have that surgery revision soon because she experiences numbness, weakness in both of her arms. CM provided empathetic listening. Pt's PCP is Viki Garncia at [facility] and she states she has an appt with her on Friday 01/19 . Pt is also followed for pain mgmt by [facility]. CM provided pt with [facility] pamphlet and local liasons info. Pt also [facility] to [facility]. CM to e-mail [facility] liasons and request they reach out to the pt and discuss additional [place] benefits and also setting pt up with counseling or other behavioral health services. CM will also followup on Friday w/pt's PCP to ensure they are aware of pt possibly needing additional help or respite. Date Signed: 01/16/2019 04:42 PM Electronically Signed By:Gwen Freire RN
[2019-01-16] MEDS ORDERED: PATCH REMOVAL 1 EA PATCH TD SCH (21:00)
== END 2019-01-16 15:23 | disposition home or self-care (01) ==
DX: S20.219A Contusion of unspecified front wall of thorax, initial encounter (principal); M25.561 Pain in right knee; W19.XXXA Unspecified fall, initial encounter; Y92.9 Unspecified place or not applicable; Y93.9 Activity, unspecified; Y99.9 Unspecified external cause status
CPT/HCPCS: 82435-PO; 82565-PO; 82947-PO; 84132-PO; 84295-PO; 84520-PO; 85014-ER; Q9967

== ENCOUNTER → 2019-02-18 | Outpatient (CLI) | payer MEDICAID ==
[~2019-02-18] MED LIST changes: +GADOBUTROL 10 ML VIAL IVP ONE; -IOPAMIDOL (ISOVUE-M 300) 15 ML VIAL ONE; -LIDOCAINE 1% 300 MG/30 ML SDV ONE
== END ==
LOC: FIMAGING 11:25
PROVIDERS: ATTEND Psychiatry & Neurology Neurology
DX: M48.02 Spinal stenosis, cervical region (principal); G95.20 Unspecified cord compression; R94.02 Abnormal brain scan
CPT/HCPCS: A9585